=== PATIENT | female | born 1935 | race Caucasian/White ===

== ENCOUNTER 2017-09-18 10:53 | Inpatient (IN) | payer OTHER ==
[~2017-09-18] VITALS: Ht 157.5 cm; Wt 55.7 kg
[~2017-09-18 10:53] MED LIST: ARC5 PO; DTRSR/10 PO; LOSA100T65 PO; LPT40 PO; SENN1TAB65 PO; TMPOPS2510 OPB; TPRSR/25 PO; TYL325X PO
[2017-09-18] MEDS ORDERED: ASPI81TA28 PO (11:44)
[2017-09-18] MEDS ORDERED: CHOL2000 PO (11:44)
[2017-09-18] MEDS ORDERED: LORA-741 PO (11:44)
[2017-09-18] MEDS ORDERED: OMEG10007 PO (11:44)
[2017-09-18] MEDS ORDERED: SODIUM CHLORIDE 0.9% 1000ML 1,000 ML IV STA ×3 (12:05→13:49)
--- NOTE | 2017-09-18 12:26 | DIAGNOSTIC IMAGING REPORT ---
SINGLE VIEW CHEST CLINICAL HISTORY: Generalized weakness. FINDINGS: 2 AP, portable, upright chest radiographs are compared to study dated 11/08/2014. The examination is degraded by portable technique and patient rotation. The cardiomediastinal silhouette is unremarkable. There is atherosclerotic calcification of the thoracic aorta. Airspace opacities are noted at the left lung base. Chronic interstitial thickening is similar to previous. No large pleural effusion or pneumothorax is seen. The skeletal structures are osteopenic. The bony thorax is grossly intact. IMPRESSION: There are airspace opacities at the left lung base. This could represent atelectasis versus pneumonia/aspiration pneumonitis. Clinical correlation will be required. Electronically signed by: Cristian Reyes M.D. 09/18/2017 12:25 PM Dictated Date/Time: 09/18/2017 12:23 PM
[2017-09-18 12:45] LABS: BASO % 0.1 %; BASO ABS # 0.01 K/uL (0-0.2); COMPLETE YES; EOS % 1.5 %; HEMATOCRIT 31.1 % (37-47); IG% 0.4 %; LYMPH % 14.6 %; LYMPH ABS # 1.37 K/uL (1.2-3.4); MEAN CELL VOLUME 97.2 fL (80-100); MEAN CORPUSCULAR HEMOGLOBIN 30.6 pg (25-34); MEAN CORPUSCULAR HGB CONC 31.5 g/dl (32-36); MEAN PLATELET VOLUME 9.5 fL (7.4-10.4); MONO % 7.3 %; NEUT % 76.1 %; PLATELET COUNT 238 K/uL (130-400); WHITE BLOOD COUNT 9.36 K/uL (4.8-10.8)
[2017-09-18 13:04] LABS: PROTHROMBIN TIME (PATIENT) 11.1 SECONDS (9.0-12.0)
[2017-09-18 13:12] LABS: ALT/SGPT 12 U/L (12-78); AST/SGOT 15 U/L (15-37); BLOOD UREA NITROGEN 29 mg/dl (7-18); BUN/CREATININE RATIO 29.5 (10-20); CALCIUM 7.8 mg/dl (8.5-10.1); CARBON DIOXIDE 30 mmol/L (21-32); CHLORIDE 103 mmol/L (98-107); GLUCOSE 110 mg/dl (70-99); POTASSIUM 4.3 mmol/L (3.5-5.1); SODIUM 138 mmol/L (136-145)
[2017-09-18 13:21] LABS: ALKALINE PHOSPHATASE 72 U/L (45-117); CKMB/CK RATIO 2.4 (0-3.0)
[2017-09-18 13:28] LABS: URINE APPEARANCE CLOUDY (CLEAR); URINE COLOR DK YELLOW; URINE EPITHELIAL CELL AUTO >30 /lpf (0-5); URINE NITRITE NEG (NEG); URINE SPECIFIC GRAVITY 1.023 (1.000-1.030); UROBILINOGEN NEG (NEG)
[2017-09-18 13:30] LABS: MANUAL MICROSCOPIC REQUIRED? NO; REVIEW REQ? YES; URINE BILIRUBIN NEG (NEG)
[2017-09-18] MEDS ORDERED: CEFTRIAXONE SOD INJ 1 GM ADDVIAL IV STA (14:09)
[2017-09-18] MEDS ORDERED: DAPTOmycin IV 0 MG in SODIUM CHLORIDE 0.9% 50ML 50 ML IV SCH (15:30)
[2017-09-18] MEDS ORDERED: CEFEPIME IV SCH (15:30)
[2017-09-18] MEDS ORDERED: DEXTROSE 5% IV SCH (15:30)
[2017-09-18] MEDS ORDERED: ONDANSETRON INJ 2 MG/ML 2 ML VIAL IV PRN (15:45)
[2017-09-18] MEDS ORDERED: ACETAMINOPHEN 325 MG TAB PO PRN (15:45)
[2017-09-18 16:53] VITALS: BP 95/89; PULSE 76; TEMP 36.7; O2SAT 100
[2017-09-18] MEDS ORDERED: CEFEPIME CONSULT ACTIVE PRN ×2 (17:00)
[2017-09-18 17:04] VITALS: Ht 157.5 cm; Wt 55.7 kg
[2017-09-18] MEDS: CEFEPIME IV 2,000 MG in SYRINGE 7.5 ML IV SCH (17:05)
[2017-09-18] MEDS ORDERED: TIMO0.05 OPB (17:36)
[2017-09-18] MEDS ORDERED: CHOL400T PO (17:36)
[2017-09-18] MEDS ORDERED: BISA-16 PO (17:36)
[2017-09-18] MEDS ORDERED: POLYETHYLENE (MIRALAX) 17 GM PACK PO PRN (17:45)
--- NOTE | 2017-09-18 18:15 | History and Physical ---
History & Physical Date & Time of Service: Sep 18, 2017 at 17:40 Chief Complaint: Decubitus Ulcer, Ulcer Of Left Heel, Wound Primary Care Physician: Ashlyn Bond D.O. History of Present Illness Source: family Pt is 82 y/o F with hx dementia, HTN, CAD, DM II presented to ER with family with c/o worsening ulcers to sacrum, L heel, L elbow. Pt with hx dementia and history obtained from pt's and son. Reports several weeks ago with R decubitus ulcer and ulcer to L heel, Left elbow and was seen at PCP's office and chose to try to self treat at home without wound evaluation/ treatment. Reports left elbow ulceration seemed to be healing. States noticing worsening R decubitus ulcerations and L heel with large blister and few days ago ruptured with transfer of pt with bloody clear drainage. Noticed some surrounding erythema to L heel wound and noticed edema to L LE. Reports pt with slow decline over past several years and over past 6 months has not been ambulatory. Family reports pt does not follow commands at baseline, talks/ mumbles randomly to self but does not communicate otherwise and does not seem to respond to painful stimuli. Previously was able to stand to help transfer from bed to chair or wheelchair but over past 6 months has not been able to do so. Family reports repositions her throughout the day and pt in recliner or wheelchair. States able to get pt up every 4 hrs during day to bedside commode. Recently have been having aids come to house. and son do not report any noticed choking on foods/liquids/pills. Reports often spits pills out. Past week noticed slight intermittent dry cough. Pt with hx chronic intermittent clear rhinorrhea and have not noticed any worsening. States pt's appetite varies , and some days will eat and other days will not. Pt eats soft solid foods and supplements with ensure. Drinks approx 12 ounces water a day and has some juice. Last BM 2-3 days ago. Family hasn't noticed fever, rigors, hematuria, melena, hematochezia, vomiting, diarrhea, noted wheezing or appearance of SOB. reports has been considering placement of pt in nursing facility and does not want in [facility], but has thought about [facility] in [place]. In ER pt's vitals stable. pt given rocephin. Past Medical/Surgical History Medical Problems: (1) Coronary artery disease Status: Chronic (2) Dementia Status: Chronic (3) Diabetes mellitus, type II Status: Chronic (4) Glaucoma Status: Chronic (5) Hypertension Status: Chronic Surgical Problems: (1) Status post hysterectomy Status: Chronic (2) Status post total knee replacement Status: Chronic Family History FH: cancer FATHER (hx larnyx [place], age 91) MOTHER (hx breast [place], age 81) Social History Smoking Status: Former Smoker Alcohol Use: none Drug Use: none Marital Status: Housing status: lives with significant other Occupational Status: retired Immunizations History of Influenza Vaccine: Yes History of Pneumococcal: Yes Pneumococcal Date: Sep 07, 2008 Allergies Coded Allergies: No Known Allergies (Unverified , 07/29/14) Home Medications Scheduled Aspirin (Aspirin Ec), 81 MG PO DAILY Atorvastatin (Atorvastatin Calcium), 40 MG PO DAILY Bisacodyl (Dulcolax), 1 TAB PO UD Cholecalciferol (Vitamin D), 1 TAB PO DAILY Losartan Potassium (Cozaar), 50 MG PO DAILY Metoprolol Succinate (Metoprolol Succinate ER), 25 MG PO DAILY Sennosides-Docusate Sodium (Senna Plus), 2 TABS PO DAILY Timolol Maleate (Ophth) (Timoptic 0.25% Oph), 1 DROP OPB DAILY Review of Systems unable to obtain further ROS secondary to dementia of pt. Physical Exam Vital Signs Date Time Temp Pulse Resp B/P (MAP) Pulse Ox O2 Delivery O2 Flow Rate FiO2 09/18/17 17:04 Room Air 09/18/17 16:53 36.7 76 18 95/89 (91) 100 Room Air 09/18/17 15:55 70 16 156/83 100 09/18/17 15:26 67 09/18/17 14:23 36.5 70 18 150/101 100 Room Air 09/18/17 13:04 64 18 141/65 100 Room Air 09/18/17 12:07 61 16 124/62 98 Room Air 09/18/17 11:35 100 Room Air 09/18/17 11:14 37.0 66 16 126/57 98 Room Air General Appearance: no apparent distress, + pertinent finding (frail appearing) Head: normocephalic, atraumatic Eyes: normal inspection, PERRL, sclerae normal, + pertinent finding (unable to test EOM's as pt does not follow commands) ENT: pharynx normal, + pertinent finding (mucous membranes moist) Neck: supple, no JVD, trachea midline Respiratory/Chest: lungs clear, normal breath sounds, no respiratory distress, no accessory muscle use, + pertinent finding (do not appreciate any wheezing/ rhonchi/rales however difficult to fully assess as pt does not take deep breaths ) Cardiovascular: regular rate, rhythm, no murmur, + pertinent finding ( peripheral pulses intact) Abdomen/GI: normal bowel sounds, soft, + pertinent finding (no noted wincing or guarding with palpation ) Extremities/Musculoskelatal: normal capillary refill, + pertinent finding (no noted signs of distress with palpation. LLE with edema without erythema. Left medial heel with approx 6cm ulceration with eschar with surrounding erythema, no discharge, no red streaking. Left elbow with approx 3cm ulceration with eschar without significant surrounding erythema. Right sacrum with approx 6cm ulcer with eschar & 7cm ulcer with ecshar and adjoining 3mc ulcer with eschar. Pt holding bilateral arms tightly retracted to body.) Neurologic/Psych: alert, + pertinent finding (demented, pt with intermittent mumbling to self, does not respond or follow commands) Skin: + pertinent finding (abrasions noted to back, several ecchymosis to bilateral forearms. see extremities) Diagnostics Laboratory Results Results Past 24 Hours Test 09/18/17 12:34 09/18/17 12:41 09/18/17 12:55 Range/Units White Blood Count 9.36 4.8-10.8 K/uL Red Blood Count 3.20 4.2-5.4 M/uL Hemoglobin 9.8 12.0-16.0 g/dL Hematocrit 31.1 37-47 % Mean Corpuscular Volume 97.2 80-100 fL Mean Corpuscular Hemoglobin 30.6 25-34 pg Mean Corpuscular Hemoglobin Concent 31.5 32-36 g/dl Platelet Count 238 130-400 K/uL Mean Platelet Volume 9.5 7.4-10.4 fL Neutrophils (%) (Auto) 76.1 % Lymphocytes (%) (Auto) 14.6 % Monocytes (%) (Auto) 7.3 % Eosinophils (%) (Auto) 1.5 % Basophils (%) (Auto) 0.1 % Neutrophils # (Auto) 7.12 1.4-6.5 K/uL Lymphocytes # (Auto) 1.37 1.2-3.4 K/uL Monocytes # (Auto) 0.68 0.11-0.59 K/uL Eosinophils # (Auto) 0.14 0-0.5 K/uL Basophils # (Auto) 0.01 0-0.2 K/uL RDW Standard Deviation 45.9 36.4-46.3 fL RDW Coefficient of Variation 12.9 11.5-14.5 % Immature Granulocyte % (Auto) 0.4 % Immature Granulocyte # (Auto) 0.04 0.00-0.02 K/uL Prothrombin Time 11.1 9.0-12.0 SECONDS Prothromb Time International Ratio 1.0 0.9-1.1 Activated Partial Thromboplast Time 26.2 21.0-31.0 SECONDS Partial Thromboplastin Ratio 1.0 Sodium Level 138 136-145 mmol/L Potassium Level 4.3 3.5-5.1 mmol/L Chloride Level 103 98-107 mmol/L Carbon Dioxide Level 30 21-32 mmol/L Anion Gap 5.0 3-11 mmol/L Blood Urea Nitrogen 29 7-18 mg/dl Creatinine 1.00 0.60-1.20 mg/dl Est Creatinine Clear Calc Drug Dose 34.9 ml/min Estimated GFR () 61.2 Estimated GFR (Non- 52.8 BUN/Creatinine Ratio 29.5 10-20 Random Glucose 110 70-99 mg/dl Calcium Level 7.8 8.5-10.1 mg/dl Magnesium Level 2.0 1.8-2.4 mg/dl Total Bilirubin 0.5 0.2-1 mg/dl Direct Bilirubin 0.1 0-0.2 mg/dl Aspartate Amino Transf (AST/SGOT) 15 15-37 U/L Alanine Aminotransferase (ALT/SGPT) 12 12-78 U/L Alkaline Phosphatase 72 45-117 U/L Total Creatine Kinase 94 26-192 U/L Creatine Kinase MB 2.3 0.5-3.6 ng/ml Creatine Kinase MB Ratio 2.4 0-3.0 Troponin I < 0.015 0-0.045 ng/ml Total Protein 6.4 6.4-8.2 gm/dl Albumin 1.9 3.4-5.0 gm/dl Lipase 72 73-393 U/L Thyroid Stimulating Hormone (TSH) 1.510 0.300-4.500 uIu/ml Bedside Lactic Acid Venous 2.16 0.90-1.70 mmol/L Urine Color DK YELLOW Urine Appearance CLOUDY CLEAR Urine pH 5.0 4.5-7.5 Urine Specific [place] 1.023 1.000-1.030 Urine Protein 1+ NEG Urine Glucose (UA) NEG NEG Urine Ketones TRACE NEG Urine Occult Blood 3+ NEG Urine Nitrite NEG NEG Urine Bilirubin NEG NEG Urine Urobilinogen NEG NEG Urine Leukocyte Esterase SMALL NEG Urine WBC (Auto) 1-5 0-5 /hpf Urine RBC (Auto) 10-30 0-4 /hpf Urine Hyaline Casts (Auto) 1-5 0-5 /lpf Urine Epithelial Cells (Auto) >30 0-5 /lpf Urine Bacteria (Auto) NEG NEG Urine Crystals CALCIUM OXALATE NONE PRSENT Urine Pathogenic Casts 0 /lpf Microbiology Results 09/18/17 Blood Culture, Received Pending 09/18/17 Blood Culture, Received Pending 09/18/17 MRSA DNA Surveillance Screen, Received Pending 09/18/17 Urine Culture, Received Pending 09/18/17 Gram Stain, Received Pending 09/18/17 Wound Culture, Received Pending Diagnostic Radiology CXR: IMPRESSION: There are airspace opacities at the left lung base. This could represent atelectasis versus pneumonia/aspiration pneumonitis. Clinical correlation will be required. EKG EKG: artifact noted, NSR, rate 68, no ST elevations noted Impression Assessment and Plan INFECTED ULCER L heel ulcer appears infected at this time. No leukocytosis, afebrile, no tachycardia or tachypnea. POC lactic acid: 2.1. Pt does not meet sepsis criteria at this time. Will continue to monitor. Pt also with ulcers to L elbow and R sacrum. -U/S bilateral LE to r/o DVT -obtain wound cultures from all ulceration sites -daptomycin and zosyn to cover possible MRSA and pseudomonas -ID consult -wound consult - appreciate wound nurse recommendations for wound care and type of mattress -frequent repositioning of pt -repeat cbc, prp in am DEMENTIA Pt reported to be at baseline per family -speech eval for swallowing. will hold on diet at this time until eval ATELECTASIS: CXR: impression: There are airspace opacities at the left lung base. This could represent atelectasis versus pneumonia/aspiration pneumonitis. At this time do not clinically suspect pneumonia and suspect atelectasis. Will continue to monitor. Do not suspect pt would be able to do incentive spirometry with her dementia HYPERLIPIDEMIA -add fasting lipids for am -hold lipitor at this time with pt being on daptomycin per pharmacist recommendations HX DM II Diet controlled at this time. glucose was 110 in ER. Hx A1c in 2016 was 6.1 -add A1c -continue to monitor DVT PROPHYLAXIS -heparin SQ Q12 hrs DISPOSITION -admit med/surg -DNR as per discussion with family -Follows with Dr Bond for routine care Pt was seen with Dr Tom. See addendum Level of Care Med/Surg Advanced Directives Existing Living Will: No Existing Power of Inspector [employer]: Yes Resuscitation Status DO NOT RESUSCITATE VTE Prophylaxis VTE Risk Assessment Done? Y/N: Yes Risk Level: High Given or contraindicated: Unfractionated heparin SQ Note ATTENDING ADDENDUM Record reviewed. Patient interviewed and examined. Care coordinated with Debora Urena PA-C. Please refer to her documentation for patient's history. Briefly, 82 YO female with history of ischemic heart disease, DM type 2, dementia. Brought to ED because of multiple decubitus ulcers not improving with home care. Patient is bedridden. EXAM: General- no acute distress VS- as noted Lungs- clear Heart- RRR, no gallop appreciated; pedal pulses 1/2 Abdomen- soft, nontender Extremities- swelling LLE; contractures upper and lower extremities Neuro- awake, confused Skin- multiple decubitus ulcers (left medial ankle 5 cm stage III; right greater trochanter 6 cm, unstagable; right sacral 3 cm, stage III; left sacral 6 cm, stage III; left elbow, stage III DATA: Lab studies as noted. ASSESSMENT AND PLAN: Multiple infected decubitus ulcers. Does not meet criteria for sepsis. Need to cover gram positive organisms including MRSA as well as gram negative organisms including Pseudomonas. IV antibiotic coverage with daptomycin and cefepime. Consult ID. Consult Wound Care. Avoid pressure / reposition. Please refer to ANABEL Dean's documentation for discussion of other issues. Serge Tom MD . Additional Copies To Ashlyn Bond D.O.
[2017-09-18] MEDS: DAPTOmycin IV 225 MG in SYRINGE 0 ML IV SCH (19:14)
--- NOTE | 2017-09-18 19:45 | EMERGENCY ROOM VISIT NOTE ---
History Report prepared by Donnie[place]conchis: Vikki Hay Under the Supervision of: Dr. Serge Miller M.D. First contact with patient: 12:04 Chief Complaint: WOUND INFECTION Stated Complaint: ILLNESS/SEPSIS Nursing Triage Summary: pt comes via EMS for wound concerns per . pt disoriented and mumbling. Expresive aphasia and non verbal. Contracted upper limbs. AMS and lethargic baseline per . pt seen in [facility] 1 month ago for pressure ulcers. Placed on ABX. pt skin dry, flaky, and fragile. 5 pressure ulcers noted on assessment. black and necrotic w/ purulent foul smelling drainage. History of Present Illness The patient is a 82 year old female who presents to the Emergency Room with complaints of worsening wound sites with possible wound infections. The patient comes via EMS. Per , the patient has expressive aphasia, is confused and is non verbal which is baseline for her. The patient was seen in [place] a month ago for pressure ulcers and was placed on antibiotics. Per nursing, the patient came to the ED because her wounds are not improving. Per nursing, the patient lives at home and has in home care nursing come in to check on her. Per son, the patient is mostly bedridden and has had no recent falls or trauma. History limited secondary to patient's mental status. Source of History: patient History Limited By: aphasia Onset: one month ago Review of Systems ROS limited secondary to patient's mental status. Past Medical & Surgical Medical Problems: (1) Coronary artery disease (2) Decubitus ulcer (3) Dementia (4) Diabetes mellitus, type II (5) Glaucoma (6) Hypertension (7) Ulcer of left heel (8) Wound infection Surgical Problems: (1) Status post hysterectomy (2) Status post total knee replacement Family History No pertinent family history Social History Smoking Status: Never Smoker Marital Status: Housing Status: lives with significant other Occupation Status: retired Current/Historical Medications Scheduled Aspirin (Aspirin Ec), 81 MG PO DAILY Atorvastatin (Atorvastatin Calcium), 40 MG PO DAILY Bisacodyl (Dulcolax), 1 TAB PO UD Cholecalciferol (Vitamin D), 1 TAB PO DAILY Losartan Potassium (Cozaar), 50 MG PO DAILY Metoprolol Succinate (Metoprolol Succinate ER), 25 MG PO DAILY Sennosides-Docusate Sodium (Senna Plus), 2 TABS PO DAILY Timolol Maleate (Ophth) (Timoptic 0.25% Oph), 1 DROP OPB DAILY Allergies Coded Allergies: No Known Allergies (Unverified , 07/29/14) Physical Exam Vital Signs Date Time Temp Pulse Resp B/P (MAP) Pulse Ox O2 Delivery O2 Flow Rate FiO2 09/18/17 15:26 67 09/18/17 14:23 36.5 70 18 150/101 100 Room Air 09/18/17 13:04 64 18 141/65 100 Room Air 09/18/17 12:07 61 16 124/62 98 Room Air 09/18/17 11:35 100 Room Air 09/18/17 11:14 37.0 66 16 126/57 98 Room Air Physical Exam GENERAL: Awake, in no distress HENT: Normocephalic, atraumatic. Oropharynx unremarkable. EYES: Disconjugate gaze, pupils round and reactive. Left eye glazed over which is baseline per son. NECK: Supple. No nuchal rigidity. FROM. No JVD. RESPIRATORY: Clear to auscultation. CARDIAC: Regular rate, normal rhythm. Extremities warm and well perfused. Pulses equal. ABDOMEN: Soft, non-distended. No tenderness to palpation. No rebound or guarding. No masses. RECTAL: Deferred. MUSCULOSKELETAL: Chest examination reveals no tenderness. The back is symmetrical on inspection without obvious abnormality. There is no CVA tenderness to palpation. No joint edema. LOWER EXTREMITIES: Calves are equal size bilaterally and non-tender. No edema. No discoloration. NEURO: Normal sensorium. No sensory or motor deficits noted. SKIN: Grade 3 decubitus to left heel, grade 3 decubitus left elbow, grade 3 decubitus right hip. Medical Decision & Procedures ER Provider Diagnostic Interpretation: Radiology results as stated below per my review and radiologist interpretation: SINGLE VIEW CHEST FINDINGS: 2 AP, portable, upright chest radiographs are compared to study dated 11/08/2014. The examination is degraded by portable technique and patient rotation. The cardiomediastinal silhouette is unremarkable. There is atherosclerotic calcification of the thoracic aorta. Airspace opacities are noted at the left lung base. Chronic interstitial thickening is similar to previous. No large pleural effusion or pneumothorax is seen. The skeletal structures are osteopenic. The bony thorax is grossly intact. IMPRESSION: There are airspace opacities at the left lung base. This could represent atelectasis versus pneumonia/aspiration pneumonitis. Clinical correlation will be required. Electronically signed by: Cristian Reyes M.D. Laboratory Results 09/18/17 12:34 Red Blood Count 3.20, Mean Corpuscular Volume 97.2, Mean Corpuscular Hemoglobin 30.6, Mean Corpuscular Hemoglobin Concent 31.5, Mean Platelet Volume 9.5, Neutrophils (%) (Auto) 76.1, Lymphocytes (%) (Auto) 14.6, Monocytes (%) (Auto) 7.3, Eosinophils (%) (Auto) 1.5, Basophils (%) (Auto) 0.1, Neutrophils # (Auto) 7.12, Lymphocytes # (Auto) 1.37, Monocytes # (Auto) 0.68, Eosinophils # (Auto) 0.14, Basophils # (Auto) 0.01 09/18/17 12:34 Test 09/18/17 12:34 09/18/17 12:41 09/18/17 12:55 White Blood Count 9.36 K/uL (4.8-10.8) Red Blood Count 3.20 M/uL (4.2-5.4) Hemoglobin 9.8 g/dL (12.0-16.0) Hematocrit 31.1 % (37-47) Mean Corpuscular Volume 97.2 fL (80-100) Mean Corpuscular Hemoglobin 30.6 pg (25-34) Mean Corpuscular Hemoglobin Concent 31.5 g/dl (32-36) Platelet Count 238 K/uL (130-400) Mean Platelet Volume 9.5 fL (7.4-10.4) Neutrophils (%) (Auto) 76.1 % Lymphocytes (%) (Auto) 14.6 % Monocytes (%) (Auto) 7.3 % Eosinophils (%) (Auto) 1.5 % Basophils (%) (Auto) 0.1 % Neutrophils # (Auto) 7.12 K/uL (1.4-6.5) Lymphocytes # (Auto) 1.37 K/uL (1.2-3.4) Monocytes # (Auto) 0.68 K/uL (0.11-0.59) Eosinophils # (Auto) 0.14 K/uL (0-0.5) Basophils # (Auto) 0.01 K/uL (0-0.2) RDW Standard Deviation 45.9 fL (36.4-46.3) RDW Coefficient of Variation 12.9 % (11.5-14.5) Immature Granulocyte % (Auto) 0.4 % Immature Granulocyte # (Auto) 0.04 K/uL (0.00-0.02) Prothrombin Time 11.1 SECONDS (9.0-12.0) Prothromb Time International Ratio 1.0 (0.9-1.1) Activated Partial Thromboplast Time 26.2 SECONDS (21.0-31.0) Partial Thromboplastin Ratio 1.0 Anion Gap 5.0 mmol/L (3-11) Est Creatinine Clear Calc Drug Dose 34.9 ml/min Estimated GFR () 61.2 Estimated GFR (Non- 52.8 BUN/Creatinine Ratio 29.5 (10-20) Calcium Level 7.8 mg/dl (8.5-10.1) Magnesium Level 2.0 mg/dl (1.8-2.4) Total Bilirubin 0.5 mg/dl (0.2-1) Direct Bilirubin 0.1 mg/dl (0-0.2) Aspartate Amino Transf (AST/SGOT) 15 U/L (15-37) Alanine Aminotransferase (ALT/SGPT) 12 U/L (12-78) Alkaline Phosphatase 72 U/L (45-117) Total Creatine Kinase 94 U/L (26-192) Creatine Kinase MB 2.3 ng/ml (0.5-3.6) Creatine Kinase MB Ratio 2.4 (0-3.0) Troponin I < 0.015 ng/ml (0-0.045) Total Protein 6.4 gm/dl (6.4-8.2) Albumin 1.9 gm/dl (3.4-5.0) Lipase 72 U/L (73-393) Thyroid Stimulating Hormone (TSH) 1.510 uIu/ml (0.300-4.500) Bedside Lactic Acid Venous 2.16 mmol/L (0.90-1.70) Urine Color DK YELLOW Urine Appearance CLOUDY (CLEAR) Urine pH 5.0 (4.5-7.5) Urine Specific [place] 1.023 (1.000-1.030) Urine Protein 1+ (NEG) Urine Glucose (UA) NEG (NEG) Urine Ketones TRACE (NEG) Urine Occult Blood 3+ (NEG) Urine Nitrite NEG (NEG) Urine Bilirubin NEG (NEG) Urine Urobilinogen NEG (NEG) Urine Leukocyte Esterase SMALL (NEG) Urine WBC (Auto) 1-5 /hpf (0-5) Urine RBC (Auto) 10-30 /hpf (0-4) Urine Hyaline Casts (Auto) 1-5 /lpf (0-5) Urine Epithelial Cells (Auto) >30 /lpf (0-5) Urine Bacteria (Auto) NEG (NEG) Urine Crystals CALCIUM OXALATE (NONE Urine Pathogenic Casts /lpf (0) Date/Time Source Procedure Growth Status 09/18/17 00:00 Nasal MRSA DNA Surveillance Screen - Final Specimen Positive for MRSA by DNA Probe Complete Laboratory results reviewed by me Medications Administered Medications (Trade) Dose Ordered Sig/Matthew Route Start Time Stop Time Status Last Admin Dose Admin Sodium Chloride 1,000 ml @ 125 mls/hr Q8H STAT IV 09/18/17 12:05 09/18/17 16:42 DC 09/18/17 13:11 125 MLS/HR Sodium Chloride 1,000 ml @ 999 mls/hr Q1H1M STAT IV 09/18/17 13:49 09/18/17 14:49 DC 09/18/17 14:20 999 MLS/HR Ceftriaxone Sodium (Rocephin Inj) 1 gm NOW STAT IV 09/18/17 14:09 09/18/17 14:11 DC 09/18/17 14:20 1 GM ECG Indication: other (wound infection) Rate (beats per minute): 68 Rhythm: normal sinus Findings: no acute ischemic change, no ectopy ED Course 1205: Ordered Sodium Chloride 1000 ml @ 125 mls/hr IV. 1224: The patient was evaluated in room A3. A complete history and physical exam was performed. 1349: Ordered Sodium Chloride 1000 ml @ 999 mls/hr IV, Sodium Chloride 1000 ml @ 125 mls/hr IV. 1408: I updated the family on the patient's test results. 1409: Ordered Rocephin Inj 1 gm IV. 1423: Discussed the patient's case with Debora Landa . The patient will be evaluated for further treatment and disposition. Medical Decision Triage Nursing notes reviewed. The patient's presentation and history were concerning for worsening ulcers and inability to care for her as an outpatient. Etiologies such as dehydration, metabolic abnormality, cellulitis, abscess, MRSA infection, necrotizing fasciitis, as well as others were entertained. Patient was evaluated. Cultures were obtained. Urinalysis obtained. She had the right hip decubiti cultured as well. She was hydrated. Urinalysis was somewhat concerning for infection as well as the right hip decubiti. She was given a dose of IV Rocephin. CBC showed a mild anemia. Chemistry panel is concerning for dehydration. I discussed the case with the patient's family. Given the situation further management in the hospital is appropriate. Consultation was made with internal medicine. The patient was evaluated in the Emergency Room for further management. Blood Pressure Screening Patient's blood pressure: Elevated blood pressure Blood pressure disposition: Referred to PCP (to be evaluated by hospitalist) Consults Time Called: 1420 Consulting Physician: Debora Landa Returned Call: [phone] Discussed the patient's case. The patient will be evaluated for further treatment and disposition. Impression Primary Impression: Dehydration Additional Impressions: UTI (urinary tract infection) Decubitus ulcers Scribe Attestation The scribe's documentation has been prepared under my direction and personally reviewed by me in its entirety. I confirm that the note above accurately reflects all work, treatment, procedures, and medical decision making performed by me. Departure Information Dispostion Being Evaluated By Hospitalist Referrals Elizabeth Jackman M.D. (PCP) Patient Instructions My [facility] Problem Qualifiers
[2017-09-18] MEDS ORDERED: HEPARIN SOD 5000 UNIT/0.5 ML CARP SQ SCH (21:00)
--- NOTE | 2017-09-18 22:48 | DIAGNOSTIC IMAGING REPORT ---
BILATERAL LOWER EXTREMITY VENOUS DOPPLER HISTORY: Bilateral lower extremity venous. COMPARISON STUDY: None. FINDINGS: Thrombus identified within the right common femoral vein and right superficial femoral vein. This is near occlusive thrombus. The right popliteal vein and right calf vessels are patent. The left common femoral vein and left superficial vein are patent. There is near occlusive thrombus within the left popliteal vein. The calf vessels are likely patent. IMPRESSION: Bilateral lower extremity DVT as described above. Electronically signed by: Homero Diaz M.D. 09/18/2017 10:46 PM Dictated Date/Time: 09/18/2017 10:45 PM
[2017-09-18 23:27] VITALS: BP 110/57; PULSE 75; TEMP 36.4; O2SAT 100
[2017-09-19] MEDS: HEPARIN 25,000 UNIT/500ML D5W 500 ML IV PRN (00:59)
[2017-09-19 07:23] VITALS: BP 103/56; PULSE 66; TEMP 37.1; O2SAT 100
[2017-09-19 07:26] LABS: BASO % 0.1 %; BASO ABS # 0.01 K/uL (0-0.2); EOS % 1.2 %; HEMATOCRIT 27.2 % (37-47); IG% 0.5 %; LYMPH % 19.4 %; LYMPH ABS # 1.61 K/uL (1.2-3.4); MEAN CELL VOLUME 96.1 fL (80-100); MEAN CORPUSCULAR HEMOGLOBIN 29.7 pg (25-34); MEAN CORPUSCULAR HGB CONC 30.9 g/dl (32-36); MONO % 7.1 %; NEUT % 71.7 %; PLATELET COUNT 231 K/uL (130-400); RED BLOOD COUNT 2.83 M/uL (4.2-5.4); WHITE BLOOD COUNT 8.31 K/uL (4.8-10.8)
[2017-09-19 07:32] LABS: ESTIMATED AVERAGE GLUCOSE 134 mg/dl; HA1C FLAG Normal (Normal)
[2017-09-19 07:45] LABS: PARTIAL THROMBOPLASTIN RATIO 4.1
[2017-09-19 07:53] LABS: ACANTHOCYTES 1+; COMPLETE YES; ECHINOCYTES 2+
[2017-09-19 07:58] LABS: BUN/CREATININE RATIO 28.1 (10-20); CREATININE 0.88 mg/dl (0.60-1.20); POTASSIUM 4.6 mmol/L (3.5-5.1)
[2017-09-19] MEDS ORDERED: LOSARTAN POTASSIUM 50 MG TAB PO SCH (08:00)
[2017-09-19] MEDS: METOPROLOL SUCC 25MG EXT REL TAB PO SCH (08:00)
[2017-09-19] MEDS: ASPIRIN 81 MG ECTAB PO SCH (08:00)
[2017-09-19] MEDS ORDERED: ATORVASTATIN 40 MG TAB PO SCH (08:00)
[2017-09-19 08:01] LABS: CHOLESTEROL/HDL RATIO 3.9
[2017-09-19] MEDS: TIMOLOL MALEATE 0.25% OP SOLN 5 ML BTL OPB SCH (08:41)
[2017-09-19 16:07] VITALS: BP 113/58; PULSE 71; TEMP 37.4; O2SAT 100
[2017-09-19 16:33] LABS: PARTIAL THROMBOPLASTIN RATIO 3.4
[2017-09-19] MEDS: CEFEPIME IV 2,000 MG in SYRINGE 7.5 ML IV SCH (17:52)
[2017-09-19] MEDS: DAPTOmycin IV 225 MG in SYRINGE 0 ML IV SCH (17:52)
--- NOTE | 2017-09-19 20:12 | Progress Note ---
Medicine Progress Note Date & Time of Visit: Sep 19, 2017 at 09:00 . Subjective Somnolent. Appears to be comfortable. Unable to respond to questions. . Objective Last 8 Hrs Date Time Temp Pulse Resp B/P (MAP) Pulse Ox O2 Delivery O2 Flow Rate FiO2 09/19/17 16:07 37.4 71 18 113/58 (76) 100 Room Air 09/19/17 16:05 Room Air Physical Exam: General- no apparent distress Neck- no JVD Lungs- clear to auscultation Heart- regular, no murmur or gallop appreciated Abdomen- soft, nontender Extremities- contractures of all extremities; 1+ edema left lower extremity Neuro- somnolent Skin- multiple ulcers bandaged . Laboratory Results: Last 24 Hours Test 09/19/17 07:11 09/19/17 15:46 White Blood Count 8.31 K/uL Red Blood Count 2.83 M/uL Hemoglobin 8.4 g/dL Hematocrit 27.2 % Mean Corpuscular Volume 96.1 fL Mean Corpuscular Hemoglobin 29.7 pg Mean Corpuscular Hemoglobin Concent 30.9 g/dl Platelet Count 231 K/uL Mean Platelet Volume 9.0 fL Neutrophils (%) (Auto) 71.7 % Lymphocytes (%) (Auto) 19.4 % Monocytes (%) (Auto) 7.1 % Eosinophils (%) (Auto) 1.2 % Basophils (%) (Auto) 0.1 % Neutrophils # (Auto) 5.96 K/uL Lymphocytes # (Auto) 1.61 K/uL Monocytes # (Auto) 0.59 K/uL Eosinophils # (Auto) 0.10 K/uL Basophils # (Auto) 0.01 K/uL RDW Standard Deviation 45.5 fL RDW Coefficient of Variation 12.8 % Immature Granulocyte % (Auto) 0.5 % Immature Granulocyte # (Auto) 0.04 K/uL Echinocytes 2+ Acanthocytes 1+ Activated Partial Thromboplast Time 107.6 SECONDS 89.2 SECONDS Partial Thromboplastin Ratio 4.1 3.4 Sodium Level 143 mmol/L Potassium Level 4.6 mmol/L Chloride Level 111 mmol/L Carbon Dioxide Level 27 mmol/L Anion Gap 5.0 mmol/L Blood Urea Nitrogen 25 mg/dl Creatinine 0.88 mg/dl Est Creatinine Clear Calc Drug Dose 39.7 ml/min Estimated GFR () 71.4 Estimated GFR (Non- 61.6 BUN/Creatinine Ratio 28.1 Random Glucose 96 mg/dl Estimated Average Glucose 134 mg/dl Hemoglobin A1c 6.3 % Calcium Level 8.0 mg/dl Triglycerides Level 74 mg/dl Cholesterol Level 114 mg/dl HDL Cholesterol 29 mg/dl LDL Cholesterol, Calculated 70 mg/dl VLDL Cholesterol, Calculated 15 mg/dl Cholesterol/HDL Ratio 3.9 Date/Time Source Procedure Growth Status 09/19/17 12:45 Ulcer Hip , Right Gram Stain - Final Resulted 09/19/17 12:45 Ulcer Hip , Right Wound Culture Pending Resulted 09/19/17 12:45 Ulcer Foot Left Gram Stain - Final Resulted 09/19/17 12:45 Ulcer Foot Left Wound Culture Pending Resulted 09/19/17 12:45 Ulcer Elbow Left Gram Stain - Final Resulted 09/19/17 12:45 Ulcer Elbow Left Wound Culture Pending Resulted Assessment & Plan MULTIPLE SKIN ULCERS (present on admission) Wound Care Nursing consulted. Cultures pending. Continue daptomycin and cefepime. DVT'S BILAT LOWER EXTREMITIES (present on admission) Venous duplex demonstrated extensive DVTs both lower extremities. Started on IV heparin. Continue IV heparin pending long-term plans. CORONARY ARTERY DISEASE Continue aspirin and metoprolol. HYPERTENSION Continue metoprolol. DM TYPE 2 Well-controlled on dietary management. Tight control not indicated given patient's advanced age and comorbidities. Hemoglobin A1c 6.3. Fasting blood sugar this morning = 96. Start insulin per protocol if blood sugars rise significantly. ANEMIA Hgb 9.8 --> 8.4. Suspect that anemia is chronic/multifactorial with falling H/H due to hemodilution. Check Hemoccult. Check iron, B12, folate. Follow. VTE PROPHYLAXIS Receiving IV heparin for acute bilateral DVT's present on admission. DISPOSITION To be determined. Internal Medicine follow-up with Dr. Bond. given update by phone this evening. . Current Inpatient Medications: Current Inpatient Medications Medications (Trade) Dose Ordered Sig/Matthew Route Start Time Stop Time Status Last Admin Dose Admin Acetaminophen (Tylenol Tab) 650 mg Q4H PRN PO 09/18/17 15:45 10/18/17 15:44 Ondansetron HCl (Zofran Inj) 4 mg Q6H PRN IV 09/18/17 15:45 12/24/17 15:44 Cefepime HCl 2000 mg/Syringe 20 ml @ 5 mls/min DAILY@1700 IV 09/18/17 17:00 09/28/17 16:59 09/19/17 17:52 5 MLS/MIN Daptomycin 225 mg/ Syringe 4.5 ml @ 5 mls/min DAILY@1800 IV 09/18/17 18:00 09/28/17 17:59 09/19/17 17:52 5 MLS/MIN Cefepime HCl (Consult) 1 ea UD PRN N/A 09/18/17 17:00 10/18/17 16:59 Polyethylene (Miralax Powder Packet) 17 gm DAILY PRN PO 09/18/17 17:45 10/18/17 17:44 Aspirin (Ecotrin Tab) 81 mg DAILY PO 09/19/17 08:00 10/19/17 07:59 Metoprolol Succinate (Toprol Xl Tab) 25 mg DAILY PO 09/19/17 08:00 10/19/17 07:59 Timolol Maleate (Timoptic 0.25% Oph Soln) 1 drops DAILY OPB 09/19/17 08:00 10/19/17 07:59 09/19/17 08:41 1 DROPS Heparin Sodium/ Dextrose 500 ml @ 15 mls/hr Q24H PRN IV 09/19/17 00:15 10/19/17 00:14 Future hold 09/19/17 00:59 19 MLS/HR
--- NOTE | 2017-09-19 20:16 | Medical Consult ---
Consultation Date of Consultation: Sep 19, 2017. Attending Physician: Serge Tom M.D. Reason for Consultation: Infected ulcer`` History of Present Illness 82-year-old female with baseline dementia, diabetes mellitus, hypertension, and coronary artery disease, who apparently is been suffering from pressure ulcerations involving her hip, sacrum, left elbow, and left heel. She apparently was seen approximately 1 month ago and treated with wound care and antibiotics, but over the last week family has noted progressively worsening ulcerations with foul-smelling drainage and some worsening erythema. Eventually brought to the emergency room yesterday and admitted for further management. Started empirically on IV vancomycin in cefepime, cultures now growing Staph aureus, sensitivities are pending. No report of significant fevers. Patient not able to provide any other additional history. Past Medical/Surgical History Medical Problems: (1) Decubitus ulcers Status: Acute (2) Dehydration Status: Acute (3) UTI (urinary tract infection) Status: Acute Medical Problems: (1) Coronary artery disease (2) Decubitus ulcer (3) Dementia (4) Diabetes mellitus, type II (5) Glaucoma (6) Hypertension (7) Ulcer of left heel (8) Wound infection Surgical Problems: (1) Status post hysterectomy (2) Status post total knee replacement Family History FH: cancer FATHER (hx larnyx CA, age 91) MOTHER (hx breast CA, age 81) Social History Smoking Status: Never Smoker Alcohol Use: none Drug Use: none Marital Status: Housing Status: lives with significant other Occupation Status: retired Allergies Coded Allergies: No Known Allergies (Unverified , 07/29/14) Current Inpatient Medications Current Inpatient Medications Medications (Trade) Dose Ordered Sig/Matthew Route Start Time Stop Time Status Last Admin Dose Admin Acetaminophen (Tylenol Tab) 650 mg Q4H PRN PO 09/18/17 15:45 10/18/17 15:44 Ondansetron HCl (Zofran Inj) 4 mg Q6H PRN IV 09/18/17 15:45 10/18/17 15:44 Cefepime HCl 2000 mg/Syringe 20 ml @ 5 mls/min DAILY@1700 IV 09/18/17 17:00 09/28/17 16:59 09/19/17 17:52 5 MLS/MIN Daptomycin 225 mg/ Syringe 4.5 ml @ 5 mls/min DAILY@1800 IV 09/18/17 18:00 09/28/17 17:59 09/19/17 17:52 5 MLS/MIN Cefepime HCl (Consult) 1 ea UD PRN N/A 09/18/17 17:00 10/18/17 16:59 Polyethylene (Miralax Powder Packet) 17 gm DAILY PRN PO 09/18/17 17:45 10/18/17 17:44 Aspirin (Ecotrin Tab) 81 mg DAILY PO 09/19/17 08:00 10/19/17 07:59 Metoprolol Succinate (Toprol Xl Tab) 25 mg DAILY PO 09/19/17 08:00 10/19/17 07:59 Timolol Maleate (Timoptic 0.25% Oph Soln) 1 drops DAILY OPB 09/19/17 08:00 10/19/17 07:59 09/19/17 08:41 1 DROPS Heparin Sodium/ Dextrose 500 ml @ 15 mls/hr Q24H PRN IV 09/19/17 00:15 10/19/17 00:14 Future hold 09/19/17 00:59 19 MLS/HR Potassium Chloride/Dextrose/ Sod Cl 1,000 ml @ 80 mls/hr [id number] IV 09/19/17 20:15 10/19/17 20:14 UNV Review of Systems unable to obtain review of systems because of patient's dementia. Physical Exam Date Time Temp Pulse Resp B/P (MAP) Pulse Ox O2 Delivery O2 Flow Rate FiO2 09/19/17 16:07 37.4 71 18 113/58 (76) 100 Room Air 09/19/17 16:05 Room Air 09/19/17 08:00 Room Air 09/19/17 07:23 37.1 66 20 103/56 (72) 100 Room Air 09/19/17 00:00 Room Air 09/18/17 23:27 36.4 75 18 110/57 (74) 100 Room Air General Appearance: WD/WN, no apparent distress Head: normocephalic, atraumatic Eyes: normal inspection, EOMI, sclerae normal ENT: normal ENT inspection, pharynx normal Neck: supple, no adenopathy, thyroid normal, trachea midline Respiratory/Chest: chest non-tender, lungs clear, normal breath sounds, no respiratory distress Cardiovascular: regular rate, rhythm, no gallop, no murmur Abdomen/GI: normal bowel sounds, non tender, soft, no organomegaly Back: normal inspection, no CVA tenderness Extremities/Musculoskelatal: no calf tenderness, normal capillary refill, + pedal edema, + pertinent finding ( Upper extremities contracted) Neurologic/Psych: alert, + disoriented Skin: normal color, no rash, + pertinent finding ( decubitus ulcers involving left heel, left elbow, hip, and right sacral area, with foul odor and some surrounding erythema) Lymphatic: no adenopathy Laboratory Results SINGLE VIEW CHEST CLINICAL HISTORY: Generalized weakness. FINDINGS: 2 AP, portable, upright chest radiographs are compared to study dated 11/08/2014. The examination is degraded by portable technique and patient rotation. The cardiomediastinal silhouette is unremarkable. There is atherosclerotic calcification of the thoracic aorta. Airspace opacities are noted at the left lung base. Chronic interstitial thickening is similar to previous. No large pleural effusion or pneumothorax is seen. The skeletal structures are osteopenic. The bony thorax is grossly intact. IMPRESSION: There are airspace opacities at the left lung base. This could represent atelectasis versus pneumonia/aspiration pneumonitis. Clinical correlation will be required. Electronically signed by: Cristian Reyes M.D. 09/18/2017 12:25 PM Dictated Date/Time: 09/18/2017 12:23 PM The status of this report is Signed. Draft = Not yet reviewed or approved by Radiologist. Signed = Reviewed and approved Date/Time Source Procedure Growth Status 09/19/17 12:45 Ulcer Hip , Right Gram Stain - Final Resulted 09/19/17 12:45 Ulcer Hip , Right Wound Culture Pending Resulted 09/19/17 12:45 Ulcer Foot Left Gram Stain - Final Resulted 09/19/17 12:45 Ulcer Foot Left Wound Culture Pending Resulted 09/19/17 12:45 Ulcer Elbow Left Gram Stain - Final Resulted 09/19/17 12:45 Ulcer Elbow Left Wound Culture Pending Resulted Last 24 Hours Test 09/19/17 07:11 09/19/17 15:46 White Blood Count 8.31 K/uL Red Blood Count 2.83 M/uL Hemoglobin 8.4 g/dL Hematocrit 27.2 % Mean Corpuscular Volume 96.1 fL Mean Corpuscular Hemoglobin 29.7 pg Mean Corpuscular Hemoglobin Concent 30.9 g/dl Platelet Count 231 K/uL Mean Platelet Volume 9.0 fL Neutrophils (%) (Auto) 71.7 % Lymphocytes (%) (Auto) 19.4 % Monocytes (%) (Auto) 7.1 % Eosinophils (%) (Auto) 1.2 % Basophils (%) (Auto) 0.1 % Neutrophils # (Auto) 5.96 K/uL Lymphocytes # (Auto) 1.61 K/uL Monocytes # (Auto) 0.59 K/uL Eosinophils # (Auto) 0.10 K/uL Basophils # (Auto) 0.01 K/uL RDW Standard Deviation 45.5 fL RDW Coefficient of Variation 12.8 % Immature Granulocyte % (Auto) 0.5 % Immature Granulocyte # (Auto) 0.04 K/uL Echinocytes 2+ Acanthocytes 1+ Activated Partial Thromboplast Time 107.6 SECONDS 89.2 SECONDS Partial Thromboplastin Ratio 4.1 3.4 Sodium Level 143 mmol/L Potassium Level 4.6 mmol/L Chloride Level 111 mmol/L Carbon Dioxide Level 27 mmol/L Anion Gap 5.0 mmol/L Blood Urea Nitrogen 25 mg/dl Creatinine 0.88 mg/dl Est Creatinine Clear Calc Drug Dose 39.7 ml/min Estimated GFR () 71.4 Estimated GFR (Non- 61.6 BUN/Creatinine Ratio 28.1 Random Glucose 96 mg/dl Estimated Average Glucose 134 mg/dl Hemoglobin A1c 6.3 % Calcium Level 8.0 mg/dl Triglycerides Level 74 mg/dl Cholesterol Level 114 mg/dl HDL Cholesterol 29 mg/dl LDL Cholesterol, Calculated 70 mg/dl VLDL Cholesterol, Calculated 15 mg/dl Cholesterol/HDL Ratio 3.9 SINGLE VIEW CHEST CLINICAL HISTORY: Generalized weakness. FINDINGS: 2 AP, portable, upright chest radiographs are compared to study dated 11/08/2014. The examination is degraded by portable technique and patient rotation. The cardiomediastinal silhouette is unremarkable. There is atherosclerotic calcification of the thoracic aorta. Airspace opacities are noted at the left lung base. Chronic interstitial thickening is similar to previous. No large pleural effusion or pneumothorax is seen. The skeletal structures are osteopenic. The bony thorax is grossly intact. IMPRESSION: There are airspace opacities at the left lung base. This could represent atelectasis versus pneumonia/aspiration pneumonitis. Clinical correlation will be required. Electronically signed by: Cristian Reyes M.D. 09/18/2017 12:25 PM Dictated Date/Time: 09/18/2017 12:23 PM The status of this report is Signed. Draft = Not yet reviewed or approved by Radiologist. Signed = Reviewed and approved Assessment & Plan infected left heel ulceration in patient with diabetes mellitus, with culture growing Staph aureus, sensitivities pending. Current antibiotic regimen appropriate pending final culture results. Will adjust once these are available. Will follow.
[2017-09-19] MEDS: D5W AND 1/2NSS + 20MEQ KCL 1,000 ML IV SCH (22:15)
[2017-09-19 23:30] VITALS: BP 145/69; PULSE 72; TEMP 36.9; O2SAT 100
[2017-09-20] LABS: HEMATOCRIT 25.7 % (37-47)
[2017-09-20 07:24] VITALS: BP 139/66; PULSE 69; TEMP 36.5; O2SAT 100
[2017-09-20 07:31] LABS: BUN/CREATININE RATIO 24.9 (10-20); CALCIUM 7.7 mg/dl (8.5-10.1); CREATININE 0.78 mg/dl (0.60-1.20); POTASSIUM 4.2 mmol/L (3.5-5.1)
[2017-09-20] MEDS: ASPIRIN 81 MG ECTAB PO SCH (07:41)
[2017-09-20] MEDS: METOPROLOL SUCC 25MG EXT REL TAB PO SCH (07:42)
[2017-09-20] MEDS: TIMOLOL MALEATE 0.25% OP SOLN 5 ML BTL OPB SCH (07:43)
[2017-09-20] MEDS: D5W AND 1/2NSS + 20MEQ KCL 1,000 ML IV SCH ×2 (07:44→20:56)
[2017-09-20 08:42] LABS: PARTIAL THROMBOPLASTIN RATIO 2.5
[2017-09-20] MEDS: HEPARIN 25,000 UNIT/500ML D5W 500 ML IV PRN (10:40)
[2017-09-20 14:56] VITALS: BP 145/63; PULSE 63; TEMP 36.7; O2SAT 100
[2017-09-20] MEDS: BOOST VANILLA PUDDING CUP PO SCH (17:17)
[2017-09-20] MEDS: DAPTOmycin IV 225 MG in SYRINGE 0 ML IV SCH (17:17)
[2017-09-20] MEDS: CEFEPIME IV 2,000 MG in SYRINGE 7.5 ML IV SCH (17:18)
--- NOTE | 2017-09-20 23:08 | Progress Note ---
Medicine Progress Note Date & Time of Visit: Sep 20, 2017 at 09:50 . Subjective More alert, nonverbal. Appears to be comfortable. No new concerns reported by nursing staff. . Objective Last 8 Hrs Date Time Temp Pulse Resp B/P (MAP) Pulse Ox O2 Delivery O2 Flow Rate FiO2 09/20/17 20:00 Room Air 09/20/17 15:50 Room Air Physical Exam: General- no apparent distress Neck- no JVD Lungs- clear to auscultation Heart- regular, no murmur or gallop appreciated Abdomen- soft, nontender Extremities- contractures of extremities; 1+ edema left lower extremity Neuro- more alert, nonverbal Skin- multiple ulcers bandaged; warm and dry . Laboratory Results: Last 24 Hours Test 09/19/17 23:38 09/20/17 06:46 Hemoglobin 8.1 g/dL Hematocrit 25.7 % Activated Partial Thromboplast Time 78.6 SECONDS 65.1 SECONDS Partial Thromboplastin Ratio 3.0 2.5 Sodium Level 142 mmol/L Potassium Level 4.2 mmol/L Chloride Level 109 mmol/L Carbon Dioxide Level 26 mmol/L Anion Gap 8.0 mmol/L Blood Urea Nitrogen 19 mg/dl Creatinine 0.78 mg/dl Est Creatinine Clear Calc Drug Dose 44.7 ml/min Estimated GFR () 82.6 Estimated GFR (Non- 71.3 BUN/Creatinine Ratio 24.9 Random Glucose 144 mg/dl Calcium Level 7.7 mg/dl Iron Level 20 mcg/dl Total Iron Binding Capacity 102 mcg/dl Transferrin 80 mg/dl Transferrin % Saturation 18 % Ferritin 361.0 ng/ml Vitamin B12 Level 453 pg/mL Folate 6.62 ng/mL Assessment & Plan MULTIPLE DECUBITUS SKIN ULCERS (present on admission) Wound Care Nursing consulted. Cultures growing Staphylococcus aureus, Streptococcus species, and gram- negative bacilli. ID consulted. Continue daptomycin and cefepime. Reposition/turn every 2 hours. Low air loss mattress. Consult Wound Care. Optimize nutritional support. DVT'S BILAT LOWER EXTREMITIES (present on admission) Venous duplex demonstrated extensive DVTs both lower extremities. Started on IV heparin. Continue IV heparin pending long-term plans. CORONARY ARTERY DISEASE Continue aspirin and metoprolol. HYPERTENSION Continue metoprolol. DM TYPE 2 Well-controlled on dietary management. Tight control not indicated given patient's advanced age and comorbidities. Hemoglobin A1c 6.3. Fasting blood sugar this morning = 144. Start insulin per protocol if blood sugars rise significantly. ANEMIA Hgb 9.8 --> 8.4 --> 8.1. Suspect that anemia is chronic/multifactorial with falling H/H due to hemodilution. Check Hemoccult. Serum iron 20, transferrin sat 18%, ferritin 361, vitamin B12 453, folate 6.6. Follow. VTE PROPHYLAXIS Receiving IV heparin for acute bilateral DVT's present on admission. DISPOSITION To be determined. Internal Medicine follow-up with Dr. Bond. given update by phone yesterday. . Current Inpatient Medications: Current Inpatient Medications Medications (Trade) Dose Ordered Sig/Matthew Route Start Time Stop Time Status Last Admin Dose Admin Acetaminophen (Tylenol Tab) 650 mg Q4H PRN PO 09/18/17 15:45 10/18/17 15:44 Ondansetron HCl (Zofran Inj) 4 mg Q6H PRN IV 09/18/17 15:45 10/18/17 15:44 Cefepime HCl 2000 mg/Syringe 20 ml @ 5 mls/min DAILY@1700 IV 09/18/17 17:00 09/28/17 16:59 09/20/17 17:18 5 MLS/MIN Daptomycin 225 mg/ Syringe 4.5 ml @ 5 mls/min DAILY@1800 IV 09/18/17 18:00 09/28/17 17:59 09/20/17 17:17 5 MLS/MIN Cefepime HCl (Consult) 1 ea UD PRN N/A 09/18/17 17:00 10/18/17 16:59 Polyethylene (Miralax Powder Packet) 17 gm DAILY PRN PO 09/18/17 17:45 10/18/17 17:44 09/20/17 17:17 17 GM Aspirin (Ecotrin Tab) 81 mg DAILY PO 09/19/17 08:00 10/19/17 07:59 Metoprolol Succinate (Toprol Xl Tab) 25 mg DAILY PO 09/19/17 08:00 10/19/17 07:59 Timolol Maleate (Timoptic 0.25% Oph Soln) 1 drops DAILY OPB 09/19/17 08:00 10/19/17 07:59 09/20/17 07:43 1 DROPS Heparin Sodium/ Dextrose 500 ml @ 13 mls/hr Q24H PRN IV 09/19/17 00:15 10/19/17 00:14 Future hold 09/20/17 10:40 13 MLS/HR Potassium Chloride/Dextrose/ Sod Cl 1,000 ml @ 80 mls/hr [id number] IV 09/19/17 20:15 10/19/17 20:14 09/20/17 20:56 80 MLS/HR Enteral Nutritional Formula (Boost Pudding) 1 cup TIDM PO 09/20/17 17:00 10/20/17 16:59 09/20/17 17:17 1 CUP
[2017-09-20] MEDS ORDERED: GLUCOSE 10 TABS/TUBE PO PRN (23:30)
[2017-09-20] MEDS ORDERED: GLUCAGON FOR INJ 1 MG VIAL SQ PRN (23:30)
[2017-09-20] MEDS ORDERED: DEXTROSE 50% 50 ML SYR IV PRN (23:30)
[2017-09-20] MEDS ORDERED: GLUCOSE 40% GEL 15 GM TUBE PO PRN (23:30)
[2017-09-20 23:58] VITALS: BP 102/56; PULSE 60; TEMP 37.1; O2SAT 92
[2017-09-21 07:09] VITALS: BP 124/63; PULSE 60; TEMP 36.8; O2SAT 99
[2017-09-21 07:41] LABS: BASO % 0.1 %; BASO ABS # 0.01 K/uL (0-0.2); EOS % 1.6 %; IG% 0.8 %; LYMPH % 15.6 %; LYMPH ABS # 1.35 K/uL (1.2-3.4); MEAN CELL VOLUME 96.5 fL (80-100); MEAN CORPUSCULAR HEMOGLOBIN 30.1 pg (25-34); MEAN CORPUSCULAR HGB CONC 31.2 g/dl (32-36); MEAN PLATELET VOLUME 9.3 fL (7.4-10.4); MONO % 6.8 %; NEUT % 75.1 %; PLATELET COUNT 225 K/uL (130-400); RED BLOOD COUNT 2.59 M/uL (4.2-5.4); WHITE BLOOD COUNT 8.67 K/uL (4.8-10.8)
[2017-09-21 07:50] LABS: PARTIAL THROMBOPLASTIN RATIO 1.7
[2017-09-21 08:07] LABS: COMPLETE YES; ECHINOCYTES 2+
[2017-09-21 08:11] LABS: BUN/CREATININE RATIO 20.4 (10-20); CALCIUM 7.7 mg/dl (8.5-10.1); CREATININE 0.74 mg/dl (0.60-1.20)
[2017-09-21] MEDS ORDERED: HEPARIN IV BOLUS 2,000 UNIT in SYRINGE 0 ML IV ONE (08:30)
[2017-09-21] MEDS: METOPROLOL SUCC 25MG EXT REL TAB PO SCH (09:02)
[2017-09-21] MEDS: ASPIRIN 81 MG ECTAB PO SCH (09:02)
[2017-09-21] MEDS: BOOST VANILLA PUDDING CUP PO SCH ×3 (09:02→18:04)
[2017-09-21] MEDS: TIMOLOL MALEATE 0.25% OP SOLN 5 ML BTL OPB SCH (09:02)
[2017-09-21] MEDS: D5W AND 1/2NSS + 20MEQ KCL 1,000 ML IV SCH ×2 (09:03→23:10)
[2017-09-21] MEDS: INSULIN ASPART 100 UNITS/ML 3 ML PEN SC SCH ×4 (09:05→21:00)
[2017-09-21] MEDS: COLLAGENASE OINT 30 GM TUBE EXT SCH (13:37)
--- NOTE | 2017-09-21 14:57 | Infectious Disease Progress Nt ---
Progress Note Date of Service Sep 21, 2017. Subjective Pt evaluation today including: physical exam, chart review, lab review, review of studies, conversation w/ retail client solutions consultant, review of inpatient medication list No obvious new problems since last visit. Has remained afebrile. Tolerating Abx. Additional Comments: Not obtainable Medications Current Inpatient Medications Medications (Trade) Dose Ordered Sig/Matthew Route Start Time Stop Time Status Last Admin Dose Admin Acetaminophen (Tylenol Tab) 650 mg Q4H PRN PO 09/18/17 15:45 10/18/17 15:44 Ondansetron HCl (Zofran Inj) 4 mg Q6H PRN IV 09/18/17 15:45 10/18/17 15:44 Cefepime HCl 2000 mg/Syringe 20 ml @ 5 mls/min DAILY@1700 IV 09/18/17 17:00 09/28/17 16:59 09/20/17 17:18 5 MLS/MIN Daptomycin 225 mg/ Syringe 4.5 ml @ 5 mls/min DAILY@1800 IV 09/18/17 18:00 09/28/17 17:59 09/20/17 17:17 5 MLS/MIN Cefepime HCl (Consult) 1 ea UD PRN N/A 09/18/17 17:00 10/18/17 16:59 Polyethylene (Miralax Powder Packet) 17 gm DAILY PRN PO 09/18/17 17:45 10/18/17 17:44 09/20/17 17:17 17 GM Aspirin (Ecotrin Tab) 81 mg DAILY PO 09/19/17 08:00 10/19/17 07:59 09/21/17 09:02 81 MG Metoprolol Succinate (Toprol Xl Tab) 25 mg DAILY PO 09/19/17 08:00 10/19/17 07:59 09/21/17 09:02 25 MG Timolol Maleate (Timoptic 0.25% Oph Soln) 1 drops DAILY OPB 09/19/17 08:00 10/19/17 07:59 09/21/17 09:02 1 DROPS Heparin Sodium/ Dextrose 500 ml @ 15 mls/hr Q24H PRN IV 09/19/17 00:15 10/19/17 00:14 Future hold 09/20/17 10:40 13 MLS/HR Potassium Chloride/Dextrose/ Sod Cl 1,000 ml @ 80 mls/hr [id number] IV 09/19/17 20:15 10/19/17 20:14 09/21/17 09:03 80 MLS/HR Enteral Nutritional Formula (Boost Pudding) 1 cup TIDM PO 09/20/17 17:00 10/20/17 16:59 09/21/17 09:02 1 CUP Insulin Aspart (novoLOG ASPART) SLIDING SCALE G... ACHS SC 09/21/17 06:30 10/21/17 06:29 09/21/17 09:05 1 UNITS Glucose (Glucose 40% Gel) 15-30 GRAMS 15 GRAMS... UD PRN PO 09/20/17 23:30 10/20/17 23:29 Glucose (Glucose Chew Tab) 4-8 Tablets 4 Tabl... UD PRN PO 09/20/17 23:30 10/20/17 23:29 Dextrose (Dextrose 50% 50ML Syringe) 25-50ML OF 50% DW IV FOR... UD PRN IV 09/20/17 23:30 10/20/17 23:29 Glucagon (Glucagon Inj) 1 mg UD PRN SQ 09/20/17 23:30 10/20/17 23:29 Collagenase (Santyl Oint) 1 appln DAILY EXT 09/21/17 11:15 10/21/17 11:14 09/21/17 13:37 1 APPLN Objective Vital Signs Date Time Temp Pulse Resp B/P (MAP) Pulse Ox O2 Delivery O2 Flow Rate FiO2 09/21/17 11:37 Room Air 09/21/17 07:09 36.8 60 17 124/63 (83) 99 Room Air 09/21/17 00:00 Room Air 09/20/17 23:58 37.1 60 18 102/56 (71) 92 Room Air 09/20/17 20:00 Room Air 09/20/17 15:50 Room Air 09/20/17 14:56 36.7 63 18 145/63 (90) 100 Room Air Physical Exam General Appearance: WD/WN, no apparent distress Eyes: normal inspection, EOMI, sclerae normal ENT: normal ENT inspection, pharynx normal Neck: supple, no adenopathy, trachea midline Respiratory/Chest: chest non-tender, lungs clear, normal breath sounds, no respiratory distress Cardiovascular: regular rate, rhythm, no gallop, no murmur Abdomen: normal bowel sounds, non tender, soft, no organomegaly Extremities: non-tender, + pertinent finding (contracted extemities) Neurologic/Psychiatric: alert, + disoriented Skin: normal color, no rash, + pertinent finding (dressings intact) Lymphatic: no adenopathy Laboratory Results Last 24 Hours Test 09/21/17 07:22 09/21/17 08:00 09/21/17 11:30 White Blood Count 8.67 K/uL Red Blood Count 2.59 M/uL Hemoglobin 7.8 g/dL Hematocrit 25.0 % Mean Corpuscular Volume 96.5 fL Mean Corpuscular Hemoglobin 30.1 pg Mean Corpuscular Hemoglobin Concent 31.2 g/dl Platelet Count 225 K/uL Mean Platelet Volume 9.3 fL Neutrophils (%) (Auto) 75.1 % Lymphocytes (%) (Auto) 15.6 % Monocytes (%) (Auto) 6.8 % Eosinophils (%) (Auto) 1.6 % Basophils (%) (Auto) 0.1 % Neutrophils # (Auto) 6.51 K/uL Lymphocytes # (Auto) 1.35 K/uL Monocytes # (Auto) 0.59 K/uL Eosinophils # (Auto) 0.14 K/uL Basophils # (Auto) 0.01 K/uL RDW Standard Deviation 45.0 fL RDW Coefficient of Variation 12.9 % Immature Granulocyte % (Auto) 0.8 % Immature Granulocyte # (Auto) 0.07 K/uL Echinocytes 2+ Activated Partial Thromboplast Time 44.3 SECONDS Partial Thromboplastin Ratio 1.7 Sodium Level 139 mmol/L Potassium Level 4.0 mmol/L Chloride Level 108 mmol/L Carbon Dioxide Level 23 mmol/L Anion Gap 8.0 mmol/L Blood Urea Nitrogen 15 mg/dl Creatinine 0.74 mg/dl Est Creatinine Clear Calc Drug Dose 47.2 ml/min Estimated GFR () 88.1 Estimated GFR (Non- 76.0 BUN/Creatinine Ratio 20.4 Random Glucose 170 mg/dl Calcium Level 7.7 mg/dl Bedside Glucose 181 mg/dl 166 mg/dl Assessment and Plan infected left heel ulceration in patient with diabetes mellitus, with culture growing Staph aureus and GNBs, sensitivities pending. Current antibiotic regimen appropriate pending final culture results. Will likely need 7-10 days IV abx.
[2017-09-21 15:05] VITALS: BP 118/59; PULSE 67; TEMP 37.1; O2SAT 100
[2017-09-21 15:52] LABS: PARTIAL THROMBOPLASTIN RATIO 3.2
[2017-09-21] MEDS: HEPARIN 25,000 UNIT/500ML D5W 500 ML IV PRN ×2 (16:38→23:41)
[2017-09-21] MEDS: CEFEPIME IV 2,000 MG in SYRINGE 7.5 ML IV SCH (18:03)
[2017-09-21] MEDS: DAPTOmycin IV 225 MG in SYRINGE 0 ML IV SCH (18:32)
--- NOTE | 2017-09-21 20:31 | Progress Note ---
Medicine Progress Note Date & Time of Visit: Sep 21, 2017 at 09:50 . Subjective Awake, nonverbal. Appears to be comfortable. No BM since admission. No other new concerns reported by staff. . Objective Last 8 Hrs Date Time Temp Pulse Resp B/P (MAP) Pulse Ox O2 Delivery O2 Flow Rate FiO2 09/21/17 15:05 37.1 67 20 118/59 (78) 100 Room Air Physical Exam: General- no apparent distress Neck- no JVD Lungs- clear to auscultation Heart- regular, no murmur or gallop appreciated Abdomen- soft, nontender Extremities- contractures of extremities; 1+ edema left lower extremity Neuro- awake, nonverbal Skin- multiple ulcers bandaged; warm and dry . Laboratory Results: Last 24 Hours Test 09/21/17 07:22 09/21/17 08:00 09/21/17 11:30 09/21/17 15:20 White Blood Count 8.67 K/uL Red Blood Count 2.59 M/uL Hemoglobin 7.8 g/dL Hematocrit 25.0 % Mean Corpuscular Volume 96.5 fL Mean Corpuscular Hemoglobin 30.1 pg Mean Corpuscular Hemoglobin Concent 31.2 g/dl Platelet Count 225 K/uL Mean Platelet Volume 9.3 fL Neutrophils (%) (Auto) 75.1 % Lymphocytes (%) (Auto) 15.6 % Monocytes (%) (Auto) 6.8 % Eosinophils (%) (Auto) 1.6 % Basophils (%) (Auto) 0.1 % Neutrophils # (Auto) 6.51 K/uL Lymphocytes # (Auto) 1.35 K/uL Monocytes # (Auto) 0.59 K/uL Eosinophils # (Auto) 0.14 K/uL Basophils # (Auto) 0.01 K/uL RDW Standard Deviation 45.0 fL RDW Coefficient of Variation 12.9 % Immature Granulocyte % (Auto) 0.8 % Immature Granulocyte # (Auto) 0.07 K/uL Echinocytes 2+ Activated Partial Thromboplast Time 44.3 SECONDS 82.5 SECONDS Partial Thromboplastin Ratio 1.7 3.2 Sodium Level 139 mmol/L Potassium Level 4.0 mmol/L Chloride Level 108 mmol/L Carbon Dioxide Level 23 mmol/L Anion Gap 8.0 mmol/L Blood Urea Nitrogen 15 mg/dl Creatinine 0.74 mg/dl Est Creatinine Clear Calc Drug Dose 47.2 ml/min Estimated GFR () 88.1 Estimated GFR (Non- 76.0 BUN/Creatinine Ratio 20.4 Random Glucose 170 mg/dl Calcium Level 7.7 mg/dl Bedside Glucose 181 mg/dl 166 mg/dl Test 09/21/17 17:25 09/21/17 20:06 Bedside Glucose 162 mg/dl 148 mg/dl Assessment & Plan MULTIPLE DECUBITUS SKIN ULCERS (present on admission) Wound Care Nursing consulted. Cultures growing Staphylococcus aureus, Streptococcus species, and gram- negative bacilli. ID consulted. Avoid pressure. Reposition/turn every 2 hours. Wound Care consulted. Optimize nutritional support. Continue daptomycin and cefepime. DVT'S BILAT LOWER EXTREMITIES (present on admission) Venous duplex demonstrated extensive DVTs both lower extremities. Started on IV heparin. Continue IV heparin pending long-term plans. Consider transition to warfarin if stools heme negative CORONARY ARTERY DISEASE Continue aspirin and metoprolol. HYPERTENSION Continue metoprolol. DM TYPE 2 Well-controlled on dietary management. Hemoglobin A1c 6.3. Fasting blood sugar this morning = 181. Lantus / NovoLog per protocol. ANEMIA Hgb 9.8 --> --> 7.8.. Suspect that anemia is chronic/multifactorial with falling H/H due to hemodilution. Hemoccult pending. Serum iron 20, transferrin sat 18%, ferritin 361, vitamin B12 453, folate 6.6. Start Fe supplementation. Transfusion not clearly indicated at this time, but consider maintaining higher H/H in light of multiple wounds. Follow. VTE PROPHYLAXIS Receiving IV heparin for acute bilateral DVT's present on admission. DISPOSITION To be determined. Anticipate need for skilled care. Case Management consulted. Internal Medicine follow-up with Dr. Bond. . Current Inpatient Medications: Current Inpatient Medications Medications (Trade) Dose Ordered Sig/Matthew Route Start Time Stop Time Status Last Admin Dose Admin Acetaminophen (Tylenol Tab) 650 mg Q4H PRN PO 09/18/17 15:45 10/18/17 15:44 Ondansetron HCl (Zofran Inj) 4 mg Q6H PRN IV 09/18/17 15:45 10/18/17 15:44 Cefepime HCl 2000 mg/Syringe 20 ml @ 5 mls/min DAILY@1700 IV 09/18/17 17:00 09/28/17 16:59 09/21/17 18:03 5 MLS/MIN Daptomycin 225 mg/ Syringe 4.5 ml @ 5 mls/min DAILY@1800 IV 09/18/17 18:00 09/28/17 17:59 09/21/17 18:32 5 MLS/MIN Cefepime HCl (Consult) 1 ea UD PRN N/A 09/18/17 17:00 10/18/17 16:59 Polyethylene (Miralax Powder Packet) 17 gm DAILY PRN PO 09/18/17 17:45 10/18/17 17:44 09/20/17 17:17 17 GM Aspirin (Ecotrin Tab) 81 mg DAILY PO 09/19/17 08:00 10/19/17 07:59 09/21/17 09:02 81 MG Metoprolol Succinate (Toprol Xl Tab) 25 mg DAILY PO 09/19/17 08:00 10/19/17 07:59 09/21/17 09:02 25 MG Timolol Maleate (Timoptic 0.25% Oph Soln) 1 drops DAILY OPB 09/19/17 08:00 10/19/17 07:59 09/21/17 09:02 1 DROPS Heparin Sodium/ Dextrose 500 ml @ 13 mls/hr Q24H PRN IV 09/19/17 00:15 10/19/17 00:14 Future hold 09/21/17 16:38 13 MLS/HR Potassium Chloride/Dextrose/ Sod Cl 1,000 ml @ 80 mls/hr [id number] IV 09/19/17 20:15 10/19/17 20:14 09/21/17 09:03 80 MLS/HR Enteral Nutritional Formula (Boost Pudding) 1 cup TIDM PO 09/20/17 17:00 10/20/17 16:59 09/21/17 18:04 1 CUP Insulin Aspart (novoLOG ASPART) SLIDING SCALE G... ACHS SC 09/21/17 06:30 10/21/17 06:29 09/21/17 09:05 1 UNITS Glucose (Glucose 40% Gel) 15-30 GRAMS 15 GRAMS... UD PRN PO 09/20/17 23:30 10/20/17 23:29 Glucose (Glucose Chew Tab) 4-8 Tablets 4 Tabl... UD PRN PO 09/20/17 23:30 10/20/17 23:29 Dextrose (Dextrose 50% 50ML Syringe) 25-50ML OF 50% DW IV FOR... UD PRN IV 09/20/17 23:30 10/20/17 23:29 Glucagon (Glucagon Inj) 1 mg UD PRN SQ 09/20/17 23:30 10/20/17 23:29 Collagenase (Santyl Oint) 1 appln DAILY EXT 09/21/17 11:15 10/21/17 11:14 09/21/17 13:37 1 APPLN
[2017-09-21] MEDS ORDERED: BISACODYL 10 MG SUPP PR PRN (20:45)
[2017-09-21 22:56] LABS: PARTIAL THROMBOPLASTIN RATIO 2.1
[2017-09-21 23:07] VITALS: BP 96/57; PULSE 61; TEMP 36.7; O2SAT 98
[2017-09-22] MEDS: INSULIN ASPART 100 UNITS/ML 3 ML PEN SC SCH ×4 (06:30→21:00)
[2017-09-22 07:29] VITALS: BP 117/51; PULSE 55; TEMP 36.8; O2SAT 100
[2017-09-22 07:29] LABS: BUN/CREATININE RATIO 14.4 (10-20); CALCIUM 7.6 mg/dl (8.5-10.1); CREATININE 0.75 mg/dl (0.60-1.20); POTASSIUM 4.2 mmol/L (3.5-5.1)
[2017-09-22 08:00] VITALS: O2SAT 100
[2017-09-22] MEDS: METOPROLOL SUCC 25MG EXT REL TAB PO SCH (08:00)
[2017-09-22] MEDS: BOOST VANILLA PUDDING CUP PO SCH ×3 (08:08→17:00)
[2017-09-22] MEDS: COLLAGENASE OINT 30 GM TUBE EXT SCH (08:08)
[2017-09-22] MEDS: TIMOLOL MALEATE 0.25% OP SOLN 5 ML BTL OPB SCH (08:08)
[2017-09-22] MEDS: DOCUSATE SODIUM 100 MG CAP PO SCH ×2 (08:08→08:12)
[2017-09-22] MEDS: ASPIRIN 81 MG ECTAB PO SCH ×2 (08:09→08:22)
[2017-09-22] MEDS ORDERED: NURSING VERBAL MED ORDER ONE (08:45)
[2017-09-22] MEDS: DOCUSATE SODIUM 100 MG/10 ML UDC PO SCH ×2 (09:27→21:03)
[2017-09-22] MEDS ORDERED: OPTIRAY 320 IV PRN (12:45)
[2017-09-22] MEDS: FERROUS SULFATE 325 MG TAB PO SCH (12:49)
--- NOTE | 2017-09-22 12:52 | Wound Consultation: Inpatient ---
Wound Consultation Date of Consultation: Sep 22, 2017. Attending Physician: Ko Torres M.D. Reason for Consultation: Multiple pressure ulcers History of Present Illness Ms. Moncada is an 82-year-old female with history of dementia admitted to [facility] on 09/18/2017 for multiple pressure ulcers to the heel coccyx hip and elbow. Patient was unable to contribute to history of present illness due to mental status no family was available at the time of my consultation and history was obtained from old records. Ulcers have been present for several weeks and patient was seen by PCP decision was made to treat wounds at home at that time but due to increasing blister formation and redness of the wounds as well as declining ADLs patient was evaluated and admitted to [facility]. Family History FH: cancer FATHER (hx larnyx CA, age 91) MOTHER (hx breast CA, age 81) Social History Smoking Status: Never Smoker Alcohol Use: none Drug Use: none Marital Status: Housing Status: lives with significant other Occupation Status: retired Allergies Coded Allergies: No Known Allergies (Unverified , 07/29/14) Home Medications Scheduled Aspirin (Aspirin Ec), 81 MG PO DAILY Atorvastatin (Atorvastatin Calcium), 40 MG PO DAILY Bisacodyl (Dulcolax), 1 TAB PO UD Cholecalciferol (Vitamin D), 1 TAB PO DAILY Losartan Potassium (Cozaar), 50 MG PO DAILY Metoprolol Succinate (Metoprolol Succinate ER), 25 MG PO DAILY Sennosides-Docusate Sodium (Senna Plus), 2 TABS PO DAILY Timolol Maleate (Ophth) (Timoptic 0.25% Oph), 1 DROP OPB DAILY Inpatient Medications Current Inpatient Medications Medications (Trade) Dose Ordered Sig/Matthew Route Start Time Stop Time Status Last Admin Dose Admin Acetaminophen (Tylenol Tab) 650 mg Q4H PRN PO 09/18/17 15:45 10/18/17 15:44 Ondansetron HCl (Zofran Inj) 4 mg Q6H PRN IV 09/18/17 15:45 10/18/17 15:44 Cefepime HCl 2000 mg/Syringe 20 ml @ 5 mls/min DAILY@1700 IV 09/18/17 17:00 09/28/17 16:59 09/21/17 18:03 5 MLS/MIN Daptomycin 225 mg/ Syringe 4.5 ml @ 5 mls/min DAILY@1800 IV 09/18/17 18:00 09/28/17 17:59 09/21/17 18:32 5 MLS/MIN Cefepime HCl (Consult) 1 ea UD PRN N/A 09/18/17 17:00 10/18/17 16:59 Polyethylene (Miralax Powder Packet) 17 gm DAILY PRN PO 09/18/17 17:45 10/18/17 17:44 09/20/17 17:17 17 GM Aspirin (Ecotrin Tab) 81 mg DAILY PO 09/19/17 08:00 10/19/17 07:59 09/21/17 09:02 81 MG Metoprolol Succinate (Toprol Xl Tab) 25 mg DAILY PO 09/19/17 08:00 10/19/17 07:59 09/21/17 09:02 25 MG Timolol Maleate (Timoptic 0.25% Oph Soln) 1 drops DAILY OPB 09/19/17 08:00 10/19/17 07:59 09/22/17 08:08 1 DROPS Heparin Sodium/ Dextrose 500 ml @ 13 mls/hr Q24H PRN IV 09/19/17 00:15 10/19/17 00:14 Future hold 09/21/17 23:41 13 MLS/HR Potassium Chloride/Dextrose/ Sod Cl 1,000 ml @ 50 mls/hr Q20H IV 09/19/17 20:15 10/19/17 20:14 09/21/17 23:10 50 MLS/HR Enteral Nutritional Formula (Boost Pudding) 1 cup TIDM PO 09/20/17 17:00 10/20/17 16:59 09/22/17 08:08 1 CUP Insulin Aspart (novoLOG ASPART) SLIDING SCALE G... ACHS SC 09/21/17 06:30 10/21/17 06:29 09/21/17 09:05 1 UNITS Glucose (Glucose 40% Gel) 15-30 GRAMS 15 GRAMS... UD PRN PO 09/20/17 23:30 10/20/17 23:29 Glucose (Glucose Chew Tab) 4-8 Tablets 4 Tabl... UD PRN PO 09/20/17 23:30 10/20/17 23:29 Dextrose (Dextrose 50% 50ML Syringe) 25-50ML OF 50% DW IV FOR... UD PRN IV 09/20/17 23:30 10/20/17 23:29 Glucagon (Glucagon Inj) 1 mg UD PRN SQ 09/20/17 23:30 10/20/17 23:29 Collagenase (Santyl Oint) 1 appln DAILY EXT 09/21/17 11:15 10/21/17 11:14 09/22/17 08:08 1 APPLN Ferrous Sulfate (Feosol Tab) 325 mg DAILY@1300 PO 09/22/17 13:00 10/22/17 12:59 Bisacodyl (Dulcolax Supp) 10 mg DAILY PRN [place] 09/21/17 20:45 10/21/17 20:44 Docusate Sodium (coLACE SYRUP) 100 mg BID PO 09/22/17 08:45 10/22/17 08:44 09/22/17 09:27 100 MG Ioversol (Optiray 320) 100 ml UD PRN IV 09/22/17 12:45 09/26/17 12:44 UNV Review of Systems Unable to obtain due to patient's mental status Physical Exam Date Time Temp Pulse Resp B/P (MAP) Pulse Ox O2 Delivery O2 Flow Rate FiO2 09/22/17 08:00 100 Room Air 09/22/17 07:29 36.8 55 16 117/51 (73) 100 Room Air 09/22/17 00:00 Room Air 09/21/17 23:07 36.7 61 20 96/57 (70) 98 Room Air 09/21/17 16:00 Room Air 09/21/17 15:05 37.1 67 20 118/59 (78) 100 Room Air General patient is lying in bed in left lateral decubitus position in no acute distress. Patient is not oriented to person place or time Skin exam reveals a specific eschar to the sacral area measuring 9.4 by E.2 with no depth determined. Wound #2 to the right hip measures 6.1 x 8.2 with a depth of 0.6 cm with eschar periwound erythema and drainage present. Wound #3 to the left elbow 3.1 x 2.3 with a depth of 0.6 with slough present and wound # 4 to the left heel measures 7 x 8.2 cm with a depth of 0.2 cm Head: normocephalic Eyes: PERRL ENT: normal ENT inspection Neck: supple Laboratory Results Last 24 Hours Test 09/21/17 15:20 09/21/17 17:25 09/21/17 20:06 09/21/17 22:22 Activated Partial Thromboplast Time 82.5 SECONDS 55.0 SECONDS Partial Thromboplastin Ratio 3.2 2.1 Bedside Glucose 162 mg/dl 148 mg/dl Test 09/22/17 06:29 09/22/17 07:43 09/22/17 11:56 Hemoglobin 7.4 g/dL Hematocrit 24.0 % Activated Partial Thromboplast Time 53.0 SECONDS Partial Thromboplastin Ratio 2.0 Sodium Level 138 mmol/L Potassium Level 4.2 mmol/L Chloride Level 108 mmol/L Carbon Dioxide Level 24 mmol/L Anion Gap 6.0 mmol/L Blood Urea Nitrogen 11 mg/dl Creatinine 0.75 mg/dl Est Creatinine Clear Calc Drug Dose 46.5 ml/min Estimated GFR () 86.6 Estimated GFR (Non- 74.8 BUN/Creatinine Ratio 14.4 Random Glucose 140 mg/dl Calcium Level 7.6 mg/dl Bedside Glucose 146 mg/dl 139 mg/dl Assessment & Plan Assessment #1 unstageable pressure ulcer sacral #2 unstageable pressure ulcer right hip #3 stage III pressure ulcer right elbow #4 unstageable pressure ulcer right heel Plan: The sacral wound was unable to be debrided and wound was scored with a # 11 blade and will use Santyl for the next 48 hours before attempting additional debridement. The wound to the right hip was debrided using scissors and forceps and a curette of eschar slough and subcutaneous tissue. Wound to the right heel and elbow were also debrided using scissors forceps and a curette. Santyl will be applied as stated to the sacrum and hip changed daily with Aquacel Ag to the right heel and elbow. Patient will continue on anabiotic therapy and the direction of Dr. Danielle. CT with contrast to the right hip will be ordered. We will continue with offloading measures. Excisional debridement of 114 cm was performed
--- NOTE | 2017-09-22 13:48 | Progress Note ---
Internal Med Progress Note Date of Service: Sep 22, 2017. Provider Documentation: SUBJECTIVE: The patient was seen and examined Remains stable in Bed Denies any symptoms OBJECTIVE: Vital Signs-as noted below Exam: General-No distress at rest Eyes-Normal ENT-Normal Neck-Supple Lungs-Decreased breath sound bilaterally Minimal bibasilar crackles Heart-Regular,no murmur Abdomen-Benign,no masses,bowel sound present Extremities-In flexed posture Trace edema bilaterally Neuro-AA Not much communicative Lab data as noted below. ASSESSMENT & PLAN: MULTIPLE DECUBITUS SKIN ULCERS (present on admission) Wound Care Nursing consulted. Cultures growing Staphylococcus aureus, Streptococcus species, and gram- negative bacilli. ID consulted-appreciate input . Reposition/turn every 2 hours. Optimize nutritional support. Continue daptomycin and cefepime and wound care as per nursing DVT'S BILAT LOWER EXTREMITIES (present on admission) Venous duplex demonstrated extensive DVTs both lower extremities. Started on IV heparin. Continue IV heparin pending long-term plans. Consider transition to warfarin if stools heme negative-not yet received ANEMIA-Chronic Hgb 9.8 --> --> 7.8.. Suspect that anemia is chronic/multifactorial with falling H/H due to hemodilution Serum iron 20, transferrin sat 18%, ferritin 361, vitamin B12 453, folate 6.6. Start Fe supplementation. Transfusion not clearly indicated at this time, but consider maintaining higher H/H in light of multiple wounds. Hb 7.4 on 09/22 Will transfuse if Hb drops below 7.0 CORONARY ARTERY DISEASE Continue aspirin and metoprolol. No acute issue HYPERTENSION Continue metoprolol. DM TYPE 2 Well-controlled on dietary management. Hemoglobin A1c 6.3. Fasting blood sugar this morning = 181. Lantus / NovoLog per protocol. VTE PROPHYLAXIS Receiving IV heparin for acute bilateral DVT's present on admission. DISPOSITION To be determined. Anticipate need for skilled care. Case Management consulted. Internal Medicine follow-up with Dr. Bond. Vital Signs: Date Time Temp Pulse Resp B/P (MAP) Pulse Ox O2 Delivery O2 Flow Rate FiO2 09/22/17 08:00 100 Room Air 09/22/17 07:29 36.8 55 16 117/51 (73) 100 Room Air 09/22/17 00:00 Room Air 09/21/17 23:07 36.7 61 20 96/57 (70) 98 Room Air 09/21/17 16:00 Room Air 09/21/17 15:05 37.1 67 20 118/59 (78) 100 Room Air Lab Results: Results Past 24 Hours Test 09/21/17 15:20 09/21/17 17:25 09/21/17 20:06 09/21/17 22:22 Range/Units Activated Partial Thromboplast Time 82.5 55.0 21.0-31.0 SECONDS Partial Thromboplastin Ratio 3.2 2.1 Bedside Glucose 162 148 70-90 mg/dl Test 09/22/17 06:29 09/22/17 07:43 09/22/17 11:56 Range/Units Hemoglobin 7.4 12.0-16.0 g/dL Hematocrit 24.0 37-47 % Activated Partial Thromboplast Time 53.0 21.0-31.0 SECONDS Partial Thromboplastin Ratio 2.0 Sodium Level 138 136-145 mmol/L Potassium Level 4.2 3.5-5.1 mmol/L Chloride Level 108 98-107 mmol/L Carbon Dioxide Level 24 21-32 mmol/L Anion Gap 6.0 3-11 mmol/L Blood Urea Nitrogen 11 7-18 mg/dl Creatinine 0.75 0.60-1.20 mg/dl Est Creatinine Clear Calc Drug Dose 46.5 ml/min Estimated GFR () 86.6 Estimated GFR (Non- 74.8 BUN/Creatinine Ratio 14.4 10-20 Random Glucose 140 70-99 mg/dl Calcium Level 7.6 8.5-10.1 mg/dl Bedside Glucose 146 139 70-90 mg/dl
--- NOTE | 2017-09-22 14:52 | DIAGNOSTIC IMAGING REPORT ---
R HIP-LOWER EXTREMITY WITH CLINICAL HISTORY: 82 years-old Female presenting with non-healing wound. TECHNIQUE: Multidetector CT of the right hip was performed after the administration of intravenous contrast. IV contrast: 120 mL of Optiray 320. A dose lowering technique was used consistent with the principles of ALARA (as low as reasonably achievable). COMPARISON: Plain radiograph of the pelvis from 07/29/2014. CT DOSE (mGy.cm): The estimated cumulative dose is 170.36 mGy.cm. FINDINGS: [employer] topogram: Unremarkable. Right hip joint congruent. Primarily medial joint space loss noted at the hip joint. Osteophytosis also present, evidence of degenerative change. Overlying the greater trochanter is a defect of the cutis and subcutaneous tissue with an associated laminar collection of fluid or phlegmonous material measuring 7.2 x 1.3 x 3.9 cm (series 2 image 20; series 300 image 21). This demonstrates mild rim enhancement and is contiguous with the overlying defect. This does not appear to track deep to the iliotibial band. However, there is fluid within the distended right trochanteric bursa. No masha evidence of osseous erosion or periosteal reaction. Extensive subcutaneous edema noted along the lateral and posterior right thigh. Remaining pelvic structures demonstrate moderate stool burden. A Nance catheter is in place in the decompressed urinary bladder. Atherosclerosis. Apparent filling defect in the common femoral vein (series 2 image 18). IMPRESSION: 1. Decubitus ulcer over the right greater trochanter with associated laminar fluid or phlegmonous material contiguous with overlying defect. This does not appear to track the to the iliotibial band. 2. Subjacent right greater trochanteric bursitis. Infection cannot be excluded. 3. No CT evidence of osteomyelitis. 4. Degenerative changes of the right hip joint. Electronically signed by: Felipe Costello M.D. 09/22/2017 2:51 PM Dictated Date/Time: 09/22/2017 2:43 PM
[2017-09-22 14:53] VITALS: BP 137/67; PULSE 78; TEMP 36.5; O2SAT 98
--- NOTE | 2017-09-22 15:08 | Infectious Disease Progress Nt ---
Progress Note Date of Service Sep 22, 2017. Subjective Pt evaluation today including: physical exam, chart review, lab review, review of studies, conversation w/ wellness consultant, review of inpatient medication list Wound care consultation noted. Patient now status post debridement of several wounds. Appears comfortable, no obvious distress. Remains afebrile. Additional Comments: Not obtainable because of patient's mental status Medications Current Inpatient Medications Medications (Trade) Dose Ordered Sig/Matthew Route Start Time Stop Time Status Last Admin Dose Admin Acetaminophen (Tylenol Tab) 650 mg Q4H PRN PO 09/18/17 15:45 10/18/17 15:44 Ondansetron HCl (Zofran Inj) 4 mg Q6H PRN IV 09/18/17 15:45 10/18/17 15:44 Cefepime HCl 2000 mg/Syringe 20 ml @ 5 mls/min DAILY@1700 IV 09/18/17 17:00 09/28/17 16:59 09/21/17 18:03 5 MLS/MIN Daptomycin 225 mg/ Syringe 4.5 ml @ 5 mls/min DAILY@1800 IV 09/18/17 18:00 09/28/17 17:59 09/21/17 18:32 5 MLS/MIN Cefepime HCl (Consult) 1 ea UD PRN N/A 09/18/17 17:00 10/18/17 16:59 Polyethylene (Miralax Powder Packet) 17 gm DAILY PRN PO 09/18/17 17:45 10/18/17 17:44 09/20/17 17:17 17 GM Aspirin (Ecotrin Tab) 81 mg DAILY PO 09/19/17 08:00 10/19/17 07:59 09/21/17 09:02 81 MG Metoprolol Succinate (Toprol Xl Tab) 25 mg DAILY PO 09/19/17 08:00 10/19/17 07:59 09/21/17 09:02 25 MG Timolol Maleate (Timoptic 0.25% Oph Soln) 1 drops DAILY OPB 09/19/17 08:00 10/19/17 07:59 09/22/17 08:08 1 DROPS Heparin Sodium/ Dextrose 500 ml @ 13 mls/hr Q24H PRN IV 09/19/17 00:15 10/19/17 00:14 Future hold 09/21/17 23:41 13 MLS/HR Potassium Chloride/Dextrose/ Sod Cl 1,000 ml @ 50 mls/hr Q20H IV 09/19/17 20:15 10/19/17 20:14 09/21/17 23:10 50 MLS/HR Enteral Nutritional Formula (Boost Pudding) 1 cup TIDM PO 09/20/17 17:00 10/20/17 16:59 09/22/17 12:50 1 CUP Insulin Aspart (novoLOG ASPART) SLIDING SCALE G... ACHS SC 09/21/17 06:30 10/21/17 06:29 09/21/17 09:05 1 UNITS Glucose (Glucose 40% Gel) 15-30 GRAMS 15 GRAMS... UD PRN PO 09/20/17 23:30 10/20/17 23:29 Glucose (Glucose Chew Tab) 4-8 Tablets 4 Tabl... UD PRN PO 09/20/17 23:30 10/20/17 23:29 Dextrose (Dextrose 50% 50ML Syringe) 25-50ML OF 50% DW IV FOR... UD PRN IV 09/20/17 23:30 10/20/17 23:29 Glucagon (Glucagon Inj) 1 mg UD PRN SQ 09/20/17 23:30 10/20/17 23:29 Collagenase (Santyl Oint) 1 appln DAILY EXT 09/21/17 11:15 10/21/17 11:14 09/22/17 08:08 1 APPLN Ferrous Sulfate (Feosol Tab) 325 mg DAILY@1300 PO 09/22/17 13:00 10/22/17 12:59 09/22/17 12:49 325 MG Bisacodyl (Dulcolax Supp) 10 mg DAILY PRN [place] 09/21/17 20:45 10/21/17 20:44 Docusate Sodium (coLACE SYRUP) 100 mg BID PO 09/22/17 08:45 10/22/17 08:44 09/22/17 09:27 100 MG Ioversol (Optiray 320) 100 ml UD PRN IV 09/22/17 12:45 09/26/17 12:44 Objective Vital Signs Date Time Temp Pulse Resp B/P (MAP) Pulse Ox O2 Delivery O2 Flow Rate FiO2 09/22/17 14:53 36.5 78 18 137/67 (90) 98 Room Air 09/22/17 08:00 100 Room Air 09/22/17 07:29 36.8 55 16 117/51 (73) 100 Room Air 09/22/17 00:00 Room Air 09/21/17 23:07 36.7 61 20 96/57 (70) 98 Room Air 09/21/17 16:00 Room Air Physical Exam General Appearance: WD/WN, no apparent distress Eyes: normal inspection, EOMI, sclerae normal ENT: normal ENT inspection, pharynx normal Neck: supple, no adenopathy, trachea midline Respiratory/Chest: chest non-tender, lungs clear, normal breath sounds, no respiratory distress Cardiovascular: regular rate, rhythm, no gallop, no murmur Abdomen: normal bowel sounds, non tender, soft, no organomegaly Extremities: non-tender, no calf tenderness Neurologic/Psychiatric: alert, + disoriented Skin: normal color, no rash, + pertinent finding (Dressings intact elbow and heel) Lymphatic: no adenopathy Laboratory Results Last 24 Hours Test 09/21/17 15:20 09/21/17 17:25 09/21/17 20:06 09/21/17 22:22 Activated Partial Thromboplast Time 82.5 SECONDS 55.0 SECONDS Partial Thromboplastin Ratio 3.2 2.1 Bedside Glucose 162 mg/dl 148 mg/dl Test 09/22/17 06:29 09/22/17 07:43 09/22/17 11:56 Hemoglobin 7.4 g/dL Hematocrit 24.0 % Activated Partial Thromboplast Time 53.0 SECONDS Partial Thromboplastin Ratio 2.0 Sodium Level 138 mmol/L Potassium Level 4.2 mmol/L Chloride Level 108 mmol/L Carbon Dioxide Level 24 mmol/L Anion Gap 6.0 mmol/L Blood Urea Nitrogen 11 mg/dl Creatinine 0.75 mg/dl Est Creatinine Clear Calc Drug Dose 46.5 ml/min Estimated GFR () 86.6 Estimated GFR (Non- 74.8 BUN/Creatinine Ratio 14.4 Random Glucose 140 mg/dl Calcium Level 7.6 mg/dl Bedside Glucose 146 mg/dl 139 mg/dl Assessment and Plan infected left heel ulceration in patient with diabetes mellitus, with culture growing Staph aureus and GNBs, sensitivities pending. Current antibiotic regimen appropriate pending final culture results. Will likely need 7-10 days IV abx.
[2017-09-22] MEDS: CEFEPIME IV 2,000 MG in SYRINGE 7.5 ML IV SCH (17:46)
[2017-09-22] MEDS: DAPTOmycin IV 225 MG in SYRINGE 0 ML IV SCH (17:46)
[2017-09-22 18:00] VITALS: O2SAT 100
[2017-09-22] MEDS: D5W AND 1/2NSS + 20MEQ KCL 1,000 ML IV SCH (21:02)
[2017-09-22 23:16] VITALS: BP 131/69; PULSE 77; TEMP 36.3; O2SAT 98
[2017-09-23 07:30] LABS: HEMATOCRIT 23.5 % (37-47); MEAN CELL VOLUME 94.4 fL (80-100); MEAN CORPUSCULAR HEMOGLOBIN 30.5 pg (25-34); MEAN CORPUSCULAR HGB CONC 32.3 g/dl (32-36); MEAN PLATELET VOLUME 9.3 fL (7.4-10.4); PLATELET COUNT 281 K/uL (130-400); RED BLOOD COUNT 2.49 M/uL (4.2-5.4); WHITE BLOOD COUNT 7.02 K/uL (4.8-10.8)
[2017-09-23 07:48] LABS: PARTIAL THROMBOPLASTIN RATIO 2.1
[2017-09-23 07:49] LABS: ACANTHOCYTES 2+; BASO % 0.1 %; BASO ABS # 0.01 K/uL (0-0.2); COMPLETE YES; EOS % 2.6 %; IG% 1.3 %; LYMPH % 20.5 %; LYMPH ABS # 1.44 K/uL (1.2-3.4); NEUT % 67.5 %
[2017-09-23 07:54] VITALS: PULSE 68; TEMP 37.4; O2SAT 97
[2017-09-23] MEDS: DOCUSATE SODIUM 100 MG/10 ML UDC PO SCH ×2 (08:56→20:52)
[2017-09-23] MEDS: METOPROLOL SUCC 25MG EXT REL TAB PO SCH (08:56)
[2017-09-23] MEDS: ASPIRIN 81 MG ECTAB PO SCH (08:56)
[2017-09-23] MEDS: COLLAGENASE OINT 30 GM TUBE EXT SCH (08:57)
[2017-09-23] MEDS: TIMOLOL MALEATE 0.25% OP SOLN 5 ML BTL OPB SCH (08:57)
[2017-09-23 09:00] VITALS: O2SAT 97
[2017-09-23] MEDS: INSULIN ASPART 100 UNITS/ML 3 ML PEN SC SCH ×4 (09:05→20:52)
[2017-09-23] MEDS: BOOST VANILLA PUDDING CUP PO SCH ×3 (09:06→16:27)
[2017-09-23 10:30] VITALS: BP 100/64
[2017-09-23] MEDS: FERROUS SULFATE 325 MG TAB PO SCH (12:55)
[2017-09-23] MEDS: HEPARIN 25,000 UNIT/500ML D5W 500 ML IV PRN (13:22)
--- NOTE | 2017-09-23 14:42 | Progress Note ---
Internal Med Progress Note Date of Service: Sep 23, 2017. Provider Documentation: SUBJECTIVE: The patient was seen and examined Remains stable in Bed Denies any symptoms No issue identified OBJECTIVE: Vital Signs-as noted below Exam: General-No distress at rest Eyes-Normal ENT-Normal Neck-Supple Lungs-Decreased breath sound bilaterally Minimal bibasilar crackles Heart-Regular,no murmur Abdomen-Benign,no masses,bowel sound present Extremities-In flexed posture Trace edema bilaterally Has multiple Decubitus ulcers as in the photoes Neuro-AA Not much communicative Lab data as noted below. ASSESSMENT & PLAN: MULTIPLE DECUBITUS SKIN ULCERS (present on admission) Please see the Photo-sacrum,right Hip,Right Heel and other areas Wound Care Nursing consulted. Cultures growing Staphylococcus aureus, Streptococcus species, and gram- negative bacilli. ID consulted-appreciate input . Reposition/turn every 2 hours. Optimize nutritional support. Continue daptomycin and cefepime and wound care as per nursing Will need 7 to 10 days of IV antibiotics DVT'S BILAT LOWER EXTREMITIES (present on admission) Venous duplex demonstrated extensive DVTs both lower extremities. Started on IV heparin. Continue IV heparin pending long-term plans. Consider transition to warfarin if stools heme negative-not yet received Hb not dropped -will start Coumadin ANEMIA-Chronic Hgb 9.8 --> --> 7.8.. Suspect that anemia is chronic/multifactorial with falling H/H due to hemodilution Serum iron 20, transferrin sat 18%, ferritin 361, vitamin B12 453, folate 6.6. Start Fe supplementation. Transfusion not clearly indicated at this time, but consider maintaining higher H/H in light of multiple wounds. Hb 7.4 on 09/22 Will transfuse if Hb drops below 7.0 CORONARY ARTERY DISEASE Continue aspirin and metoprolol. No acute issue HYPERTENSION Continue metoprolol. DM TYPE 2 Well-controlled on dietary management. Hemoglobin A1c 6.3. Fasting blood sugar this morning = 181. Lantus / NovoLog per protocol. VTE PROPHYLAXIS Receiving IV heparin for acute bilateral DVT's present on admission. DISPOSITION To be determined. Anticipate need for skilled care. Case Management consulted. Internal Medicine follow-up with Dr. Bond. Vital Signs: Date Time Temp Pulse Resp B/P (MAP) Pulse Ox O2 Delivery O2 Flow Rate FiO2 09/23/17 10:30 100/64 (76) 09/23/17 09:00 97 Room Air 09/23/17 08:59 Room Air 09/23/17 07:54 37.4 68 97 Room Air 09/23/17 00:00 Room Air 09/22/17 23:16 36.3 77 16 131/69 (89) 98 Room Air 09/22/17 20:00 Room Air 09/22/17 18:00 100 Room Air 09/22/17 14:53 36.5 78 18 137/67 (90) 98 Room Air Lab Results: Results Past 24 Hours Test 09/22/17 16:25 09/22/17 20:11 09/23/17 06:48 09/23/17 07:42 Range/Units Bedside Glucose 145 169 141 70-90 mg/dl White Blood Count 7.02 4.8-10.8 K/uL Red Blood Count 2.49 4.2-5.4 M/uL Hemoglobin 7.6 12.0-16.0 g/dL Hematocrit 23.5 37-47 % Mean Corpuscular Volume 94.4 80-100 fL Mean Corpuscular Hemoglobin 30.5 25-34 pg Mean Corpuscular Hemoglobin Concent 32.3 32-36 g/dl Platelet Count 281 130-400 K/uL Mean Platelet Volume 9.3 7.4-10.4 fL Neutrophils (%) (Auto) 67.5 % Lymphocytes (%) (Auto) 20.5 % Monocytes (%) (Auto) 8.0 % Eosinophils (%) (Auto) 2.6 % Basophils (%) (Auto) 0.1 % Neutrophils # (Auto) 4.74 1.4-6.5 K/uL Lymphocytes # (Auto) 1.44 1.2-3.4 K/uL Monocytes # (Auto) 0.56 0.11-0.59 K/uL Eosinophils # (Auto) 0.18 0-0.5 K/uL Basophils # (Auto) 0.01 0-0.2 K/uL RDW Standard Deviation 44.0 36.4-46.3 fL RDW Coefficient of Variation 12.8 11.5-14.5 % Immature Granulocyte % (Auto) 1.3 % Immature Granulocyte # (Auto) 0.09 0.00-0.02 K/uL Acanthocytes 2+ Activated Partial Thromboplast Time 55.8 21.0-31.0 SECONDS Partial Thromboplastin Ratio 2.1 Total Creatine Kinase 44 26-192 U/L Test 09/23/17 11:14 Range/Units Bedside Glucose 146 70-90 mg/dl
[2017-09-23 15:07] VITALS: BP 127/58; PULSE 59; TEMP 36.2; O2SAT 97
[2017-09-23] MEDS: D5W AND 1/2NSS + 20MEQ KCL 1,000 ML IV SCH (15:30)
[2017-09-23] MEDS: CEFEPIME IV 2,000 MG in SYRINGE 7.5 ML IV SCH (16:27)
[2017-09-23] MEDS: WARFARIN SOD 5 MG TAB PO SCH (16:31)
[2017-09-23] MEDS: DAPTOmycin IV 225 MG in SYRINGE 0 ML IV SCH (18:15)
[2017-09-24 00:11] VITALS: BP 114/55; PULSE 57; TEMP 36.9; O2SAT 97
[2017-09-24 07:05] VITALS: BP 99/71; PULSE 62; TEMP 37.1; O2SAT 97
[2017-09-24 07:49] LABS: PARTIAL THROMBOPLASTIN RATIO 2.1
[2017-09-24 08:30] VITALS: O2SAT 97
[2017-09-24] MEDS: ASPIRIN 81 MG ECTAB PO SCH (08:31)
[2017-09-24] MEDS: DOCUSATE SODIUM 100 MG/10 ML UDC PO SCH ×2 (08:32→20:34)
[2017-09-24] MEDS: COLLAGENASE OINT 30 GM TUBE EXT SCH (08:33)
[2017-09-24] MEDS: BOOST VANILLA PUDDING CUP PO SCH ×3 (08:34→18:15)
[2017-09-24] MEDS: METOPROLOL SUCC 25MG EXT REL TAB PO SCH (08:34)
[2017-09-24] MEDS: TIMOLOL MALEATE 0.25% OP SOLN 5 ML BTL OPB SCH (08:34)
[2017-09-24] MEDS: INSULIN ASPART 100 UNITS/ML 3 ML PEN SC SCH ×4 (08:38→20:42)
[2017-09-24 11:13] VITALS: BP 135/71; PULSE 67; TEMP 36.7; O2SAT 99
[2017-09-24] MEDS: D5W AND 1/2NSS + 20MEQ KCL 1,000 ML IV SCH (12:36)
[2017-09-24] MEDS: FERROUS SULFATE 325 MG TAB PO SCH (12:36)
[2017-09-24 14:38] VITALS: BP 117/69; PULSE 74; TEMP 36.8; O2SAT 96
[2017-09-24] MEDS: CEFEPIME IV 2,000 MG in SYRINGE 7.5 ML IV SCH (16:46)
[2017-09-24] MEDS: WARFARIN SOD 5 MG TAB PO SCH (16:47)
--- NOTE | 2017-09-24 17:03 | Progress Note ---
Internal Med Progress Note Date of Service: Sep 24, 2017. Provider Documentation: SUBJECTIVE: The patient was seen and examined Remains stable in Bed Denies any symptoms No issue identified Not communicating today OBJECTIVE: Vital Signs-as noted below Exam: General-No distress at rest remains in flexed posture Eyes-Normal ENT-Normal Neck-Supple Lungs-Decreased breath sound bilaterally Minimal bibasilar crackles Heart-Regular,no murmur Abdomen-Benign,no masses,bowel sound present Extremities-In flexed posture Trace edema bilaterally Has multiple Decubitus ulcers as in the photos Neuro-AA Not much communicative Lab data as noted below. ASSESSMENT & PLAN: MULTIPLE DECUBITUS SKIN ULCERS (present on admission) Please see the Photo-sacrum,right Hip,Right Heel and other areas Wound Care Nursing consulted. Cultures growing Staphylococcus aureus, Streptococcus species, and gram- negative bacilli. ID consulted-appreciate input . Reposition/turn every 2 hours. Optimize nutritional support. Continue daptomycin and cefepime and wound care as per nursing Will need 7 to 10 days of IV antibiotics Debridement as per Wound care provider DVT'S BILAT LOWER EXTREMITIES (present on admission) Venous duplex demonstrated extensive DVTs both lower extremities. Started on IV heparin. Continue IV heparin pending long-term plans. Consider transition to warfarin if stools heme negative-not yet received Hb not dropped Coumadin restarted ANEMIA-Chronic Hgb 9.8 --> --> 7.8.. Suspect that anemia is chronic/multifactorial with falling H/H due to hemodilution Serum iron 20, transferrin sat 18%, ferritin 361, vitamin B12 453, folate 6.6. Start Fe supplementation. Transfusion not clearly indicated at this time, but consider maintaining higher H/H in light of multiple wounds. Hb 7.4 on 09/22 Will transfuse if Hb drops below 7.0 Will monitor Hb CORONARY ARTERY DISEASE Continue aspirin and metoprolol. No acute issue HYPERTENSION Continue metoprolol. Remains stable DM TYPE 2 Well-controlled on dietary management. Hemoglobin A1c 6.3. Fasting blood sugar this morning = 181. Lantus / NovoLog per protocol. VTE PROPHYLAXIS Receiving IV heparin for acute bilateral DVT's present on admission. DISPOSITION To be determined. Anticipate need for skilled care. Case Management consulted. Internal Medicine follow-up with Dr. Bond. Vital Signs: Date Time Temp Pulse Resp B/P (MAP) Pulse Ox O2 Delivery O2 Flow Rate FiO2 09/24/17 14:38 36.8 74 18 117/69 (85) 96 Room Air 09/24/17 11:13 36.7 67 20 135/71 (92) 99 Room Air 09/24/17 08:30 97 Room Air 09/24/17 07:05 37.1 62 16 99/71 (80) 97 Room Air 09/24/17 00:11 36.9 57 16 114/55 (74) 97 Room Air 09/24/17 00:00 Room Air 09/23/17 20:00 Room Air Lab Results: Results Past 24 Hours Test 09/23/17 20:21 09/24/17 07:14 09/24/17 07:38 09/24/17 11:27 Range/Units Bedside Glucose 135 147 128 70-90 mg/dl Activated Partial Thromboplast Time 55.2 21.0-31.0 SECONDS Partial Thromboplastin Ratio 2.1 Test 09/24/17 16:13 Range/Units Bedside Glucose 158 70-90 mg/dl
[2017-09-24] MEDS: DAPTOmycin IV 225 MG in SYRINGE 0 ML IV SCH (17:28)
--- NOTE | 2017-09-24 20:34 | Infectious Disease Progress Nt ---
Progress Note Date of Service Sep 24, 2017. Subjective Pt evaluation today including: physical exam, chart review, lab review, review of studies, conversation w/ product management consultant, review of inpatient medication list Patient not answering questions today. Remains afebrile. Appears to be tolerating antibiotic without apparent difficulty. All Other Systems: Reviewed and Negative Medications Current Inpatient Medications Medications (Trade) Dose Ordered Sig/Matthew Route Start Time Stop Time Status Last Admin Dose Admin Acetaminophen (Tylenol Tab) 650 mg Q4H PRN PO 09/18/17 15:45 10/18/17 15:44 Ondansetron HCl (Zofran Inj) 4 mg Q6H PRN IV 09/18/17 15:45 10/18/17 15:44 Cefepime HCl 2000 mg/Syringe 20 ml @ 5 mls/min DAILY@1700 IV 09/18/17 17:00 09/28/17 16:59 09/24/17 16:46 5 MLS/MIN Daptomycin 225 mg/ Syringe 4.5 ml @ 5 mls/min DAILY@1800 IV 09/18/17 18:00 09/28/17 17:59 09/24/17 17:28 5 MLS/MIN Cefepime HCl (Consult) 1 ea UD PRN N/A 09/18/17 17:00 10/18/17 16:59 Polyethylene (Miralax Powder Packet) 17 gm DAILY PRN PO 09/18/17 17:45 10/18/17 17:44 09/20/17 17:17 17 GM Aspirin (Ecotrin Tab) 81 mg DAILY PO 09/19/17 08:00 10/19/17 07:59 09/24/17 08:31 81 MG Metoprolol Succinate (Toprol Xl Tab) 25 mg DAILY PO 09/19/17 08:00 10/19/17 07:59 09/23/17 08:56 25 MG Timolol Maleate (Timoptic 0.25% Oph Soln) 1 drops DAILY OPB 09/19/17 08:00 10/19/17 07:59 09/24/17 08:34 1 DROPS Heparin Sodium/ Dextrose 500 ml @ 13 mls/hr Q24H PRN IV 09/19/17 00:15 10/19/17 00:14 Future hold 09/23/17 13:22 13 MLS/HR Potassium Chloride/Dextrose/ Sod Cl 1,000 ml @ 50 mls/hr Q20H IV 09/19/17 20:15 10/19/17 20:14 09/24/17 12:36 50 MLS/HR Enteral Nutritional Formula (Boost Pudding) 1 cup TIDM PO 09/20/17 17:00 10/20/17 16:59 09/24/17 12:36 1 CUP Insulin Aspart (novoLOG ASPART) SLIDING SCALE G... ACHS SC 09/21/17 06:30 10/21/17 06:29 09/23/17 09:05 1 UNITS Glucose (Glucose 40% Gel) 15-30 GRAMS 15 GRAMS... UD PRN PO 09/20/17 23:30 10/20/17 23:29 Glucose (Glucose Chew Tab) 4-8 Tablets 4 Tabl... UD PRN PO 09/20/17 23:30 10/20/17 23:29 Dextrose (Dextrose 50% 50ML Syringe) 25-50ML OF 50% DW IV FOR... UD PRN IV 09/20/17 23:30 10/20/17 23:29 Glucagon (Glucagon Inj) 1 mg UD PRN SQ 09/20/17 23:30 10/20/17 23:29 Collagenase (Santyl Oint) 1 appln DAILY EXT 09/21/17 11:15 10/21/17 11:14 09/24/17 08:33 1 APPLN Ferrous Sulfate (Feosol Tab) 325 mg DAILY@1300 PO 09/22/17 13:00 10/22/17 12:59 09/24/17 12:36 325 MG Bisacodyl (Dulcolax Supp) 10 mg DAILY PRN CO 09/21/17 20:45 10/21/17 20:44 Docusate Sodium (coLACE SYRUP) 100 mg BID PO 09/22/17 08:45 10/22/17 08:44 09/24/17 08:32 100 MG Ioversol (Optiray 320) 100 ml UD PRN IV 09/22/17 12:45 09/26/17 12:44 Warfarin Sodium (Coumadin Tab) 5 mg DAILY@16 PO 09/23/17 16:00 10/23/17 15:59 09/24/17 16:47 5 MG Objective Vital Signs Date Time Temp Pulse Resp B/P (MAP) Pulse Ox O2 Delivery O2 Flow Rate FiO2 09/24/17 16:30 Room Air 09/24/17 14:38 36.8 74 18 117/69 (85) 96 Room Air 09/24/17 11:13 36.7 67 20 135/71 (92) 99 Room Air 09/24/17 08:30 97 Room Air 09/24/17 07:05 37.1 62 16 99/71 (80) 97 Room Air 09/24/17 00:11 36.9 57 16 114/55 (74) 97 Room Air 09/24/17 00:00 Room Air Physical Exam General Appearance: WD/WN, no apparent distress Eyes: normal inspection, sclerae normal ENT: normal ENT inspection, pharynx normal Neck: supple, no adenopathy, trachea midline Respiratory/Chest: chest non-tender, lungs clear, normal breath sounds, no respiratory distress Cardiovascular: regular rate, rhythm, no gallop, no murmur Abdomen: normal bowel sounds, non tender, soft, no organomegaly Extremities: non-tender, no calf tenderness Neurologic/Psychiatric: alert, + disoriented Skin: normal color, no rash, + pertinent finding (Ulcerations appear to be improving) Lymphatic: no adenopathy Laboratory Results Last 24 Hours Test 09/24/17 07:14 09/24/17 07:38 09/24/17 11:27 09/24/17 16:13 Activated Partial Thromboplast Time 55.2 SECONDS Partial Thromboplastin Ratio 2.1 Bedside Glucose 147 mg/dl 128 mg/dl 158 mg/dl Assessment and Plan infected left heel ulceration in patient with diabetes mellitus, with culture growing Staph aureus and Acinetobacter. Patient be continued on current antibiotics and will base length of IV antibiotics on clinical response.
[2017-09-24 23:42] VITALS: BP 126/65; PULSE 76; TEMP 37.2; O2SAT 96
[2017-09-25] MEDS: HEPARIN 25,000 UNIT/500ML D5W 500 ML IV PRN (05:26)
[2017-09-25] MEDS: INSULIN ASPART 100 UNITS/ML 3 ML PEN SC SCH ×4 (06:30→21:00)
[2017-09-25 07:20] VITALS: BP 149/78; PULSE 67; TEMP 36.5; O2SAT 97
[2017-09-25 07:42] LABS: BASO % 0.3 %; BASO ABS # 0.02 K/uL (0-0.2); EOS % 2.7 %; HEMATOCRIT 26.3 % (37-47); IG% 1.8 %; LYMPH % 23.6 %; LYMPH ABS # 1.68 K/uL (1.2-3.4); MEAN CELL VOLUME 94.9 fL (80-100); MEAN CORPUSCULAR HGB CONC 31.6 g/dl (32-36); MEAN PLATELET VOLUME 8.8 fL (7.4-10.4); MONO % 9.7 %; NEUT % 61.9 %; PLATELET COUNT 299 K/uL (130-400); RED BLOOD COUNT 2.77 M/uL (4.2-5.4); WHITE BLOOD COUNT 7.12 K/uL (4.8-10.8)
[2017-09-25 07:59] LABS: INR 1.6 (0.9-1.1); PARTIAL THROMBOPLASTIN RATIO 2.7; PROTHROMBIN TIME (PATIENT) 17.1 SECONDS (9.0-12.0)
[2017-09-25 08:10] LABS: ACANTHOCYTES 1+; COMPLETE YES; HYPERSEGMENTED POLYS 1+; SCHISTOCYTES 1+; VACUOLIZATION 1+
[2017-09-25] MEDS: D5W AND 1/2NSS + 20MEQ KCL 1,000 ML IV SCH (09:18)
[2017-09-25] MEDS: ASPIRIN 81 MG ECTAB PO SCH (09:19)
[2017-09-25] MEDS: FERROUS SULFATE 325 MG TAB PO SCH (09:19)
[2017-09-25] MEDS: BOOST VANILLA PUDDING CUP PO SCH ×3 (09:19→16:45)
[2017-09-25] MEDS: DOCUSATE SODIUM 100 MG/10 ML UDC PO SCH ×2 (09:20→21:15)
[2017-09-25] MEDS: METOPROLOL SUCC 25MG EXT REL TAB PO SCH (09:20)
[2017-09-25] MEDS: TIMOLOL MALEATE 0.25% OP SOLN 5 ML BTL OPB SCH (09:21)
[2017-09-25] MEDS: COLLAGENASE OINT 30 GM TUBE EXT SCH (09:22)
[2017-09-25 14:54] VITALS: BP 140/70; PULSE 65; TEMP 37.1; O2SAT 97
[2017-09-25] MEDS: WARFARIN SOD 5 MG TAB PO SCH (16:45)
[2017-09-25] MEDS: CEFEPIME IV 2,000 MG in SYRINGE 7.5 ML IV SCH (16:45)
--- NOTE | 2017-09-25 16:49 | Progress Note ---
Internal Med Progress Note Date of Service: Sep 25, 2017. Provider Documentation: SUBJECTIVE: The patient was seen and examined Remains stable in Bed and bedbound Denies any symptoms OBJECTIVE: Vital Signs-as noted below Exam: General-No distress at rest remains in flexed posture and minimally communicative Eyes-Normal ENT-Normal Neck-Supple Lungs-Decreased breath sound bilaterally Minimal bibasilar crackles Heart-Regular,no murmur Abdomen-Benign,no masses,bowel sound present Extremities-In flexed posture Trace edema bilaterally Has multiple Decubitus ulcers as in the photos Neuro-AA Not much communicative Lab data as noted below. ASSESSMENT & PLAN: MULTIPLE DECUBITUS SKIN ULCERS (present on admission) Please see the Photo-sacrum,right Hip,Right Heel and other areas Wound Care Nursing consulted. Cultures growing Staphylococcus aureus, Streptococcus species, and gram- negative bacilli. ID consulted-appreciate input . Reposition/turn every 2 hours. Optimize nutritional support. Continue daptomycin and cefepime and wound care as per nursing Will need 7 to 10 days of IV antibiotics Debridement as per Wound care provider Continue current antibiotics for now : Day 7 now DVT'S BILAT LOWER EXTREMITIES (present on admission) Venous duplex demonstrated extensive DVTs both lower extremities. Started on IV heparin. Continue IV heparin pending long-term plans. Consider transition to warfarin if stools heme negative-not yet received Hb not dropped Coumadin restarted-INR 1.6 today ANEMIA-Chronic Hgb 9.8 --> --> 7.8.. Suspect that anemia is chronic/multifactorial with falling H/H due to hemodilution Serum iron 20, transferrin sat 18%, ferritin 361, vitamin B12 453, folate 6.6. Start Fe supplementation. Transfusion not clearly indicated at this time, but consider maintaining higher H/H in light of multiple wounds. Hb 7.4 on 09/22 Will transfuse if Hb drops below 7.0 Will monitor Hb -8.1 on 09/25/17 CORONARY ARTERY DISEASE Continue aspirin and metoprolol. No acute issue HYPERTENSION Continue metoprolol. Remains stable DM TYPE 2 Well-controlled on dietary management. Hemoglobin A1c 6.3. Fasting blood sugar this morning = 181. Lantus / NovoLog per protocol. VTE PROPHYLAXIS Receiving IV heparin for acute bilateral DVT's present on admission. DISPOSITION To be determined. Anticipate need for skilled care. Case Management consulted. Internal Medicine follow-up with Dr. Bond. Vital Signs: Date Time Temp Pulse Resp B/P (MAP) Pulse Ox O2 Delivery O2 Flow Rate FiO2 09/25/17 14:54 37.1 65 20 140/70 (93) 97 Room Air 09/25/17 08:00 Room Air 09/25/17 07:20 36.5 67 20 149/78 (101) 97 Room Air 09/25/17 00:00 Room Air 09/24/17 23:42 37.2 76 19 126/65 (85) 96 Room Air Lab Results: Results Past 24 Hours Test 09/24/17 20:42 09/25/17 07:26 09/25/17 07:45 09/25/17 11:29 Range/Units Bedside Glucose 139 125 114 70-90 mg/dl White Blood Count 7.12 4.8-10.8 K/uL Red Blood Count 2.77 4.2-5.4 M/uL Hemoglobin 8.3 12.0-16.0 g/dL Hematocrit 26.3 37-47 % Mean Corpuscular Volume 94.9 80-100 fL Mean Corpuscular Hemoglobin 30.0 25-34 pg Mean Corpuscular Hemoglobin Concent 31.6 32-36 g/dl Platelet Count 299 130-400 K/uL Mean Platelet Volume 8.8 7.4-10.4 fL Neutrophils (%) (Auto) 61.9 % Lymphocytes (%) (Auto) 23.6 % Monocytes (%) (Auto) 9.7 % Eosinophils (%) (Auto) 2.7 % Basophils (%) (Auto) 0.3 % Neutrophils # (Auto) 4.41 1.4-6.5 K/uL Lymphocytes # (Auto) 1.68 1.2-3.4 K/uL Monocytes # (Auto) 0.69 0.11-0.59 K/uL Eosinophils # (Auto) 0.19 0-0.5 K/uL Basophils # (Auto) 0.02 0-0.2 K/uL RDW Standard Deviation 45.6 36.4-46.3 fL RDW Coefficient of Variation 13.2 11.5-14.5 % Immature Granulocyte % (Auto) 1.8 % Immature Granulocyte # (Auto) 0.13 0.00-0.02 K/uL Hypersegmented Polys 1+ Toxic Vacuolation 1+ Acanthocytes 1+ Schistocytes 1+ Prothrombin Time 17.1 9.0-12.0 SECONDS Prothromb Time International Ratio 1.6 0.9-1.1 Activated Partial Thromboplast Time 69.5 21.0-31.0 SECONDS Partial Thromboplastin Ratio 2.7 Test 09/25/17 16:24 Range/Units Bedside Glucose 122 70-90 mg/dl
[2017-09-25] MEDS: DAPTOmycin IV 225 MG in SYRINGE 0 ML IV SCH (18:37)
[2017-09-25 23:42] VITALS: BP 105/65; PULSE 74; TEMP 36.9; O2SAT 95
[2017-09-26] MEDS: D5W AND 1/2NSS + 20MEQ KCL 1,000 ML IV SCH (04:05)
[2017-09-26 06:30] LABS: INR 2.3 (0.9-1.1); PARTIAL THROMBOPLASTIN RATIO 3.6; PROTHROMBIN TIME (PATIENT) 25.4 SECONDS (9.0-12.0)
[2017-09-26] MEDS: INSULIN ASPART 100 UNITS/ML 3 ML PEN SC SCH ×4 (06:30→19:57)
[2017-09-26 06:47] LABS: CREATININE 0.75 mg/dl (0.60-1.20)
[2017-09-26 07:26] VITALS: BP 165/72; PULSE 72; TEMP 37.5; O2SAT 95
[2017-09-26] MEDS ORDERED: NURSING VERBAL MED ORDER ONE (07:30)
[2017-09-26] MEDS: COLLAGENASE OINT 30 GM TUBE EXT SCH (09:14)
[2017-09-26] MEDS: DOCUSATE SODIUM 100 MG/10 ML UDC PO SCH ×2 (09:14→19:57)
[2017-09-26] MEDS: BOOST VANILLA PUDDING CUP PO SCH ×3 (09:14→16:57)
[2017-09-26] MEDS: TIMOLOL MALEATE 0.25% OP SOLN 5 ML BTL OPB SCH (09:14)
[2017-09-26] MEDS: METOPROLOL SUCC 25MG EXT REL TAB PO SCH (09:15)
[2017-09-26] MEDS: FERROUS SULFATE 325 MG TAB PO SCH (13:00)
--- NOTE | 2017-09-26 13:29 | Progress Note ---
Internal Med Progress Note Date of Service: Sep 26, 2017. Provider Documentation: SUBJECTIVE: The patient was seen and examined Remains stable in Bed and is bedbound Denies any symptoms Eating less OBJECTIVE: Vital Signs-as noted below Exam: General-No distress at rest remains in flexed posture and minimally communicative Eyes-Normal ENT-Normal Neck-Supple Lungs-Decreased breath sound bilaterally Minimal bibasilar crackles Heart-Regular,no murmur Abdomen-Benign,no masses,bowel sound present Extremities-In flexed posture Trace edema bilaterally Has multiple Decubitus ulcers as in the photos Clinically not any better Neuro-AA Not much communicative Lab data as noted below. ASSESSMENT & PLAN: MULTIPLE DECUBITUS SKIN ULCERS (present on admission) Please see the Photo-sacrum,right Hip,Right Heel and other areas Wound Care Nursing consulted. Cultures growing Staphylococcus aureus, Streptococcus species, and gram- negative bacilli. ID consulted-appreciate input . Reposition/turn every 2 hours. Optimize nutritional support. Continue daptomycin and cefepime and wound care as per nursing Will need 7 to 10 days of IV antibiotics Debridement as per Wound care provider Continue current antibiotics for now : Day 8 now Will stop the antibiotic on Thursday and transfer back to Discussed in detailed with the SON and The -agreeable and aware that gradual deterioration is expected outcome DVT'S BILAT LOWER EXTREMITIES (present on admission) Venous duplex demonstrated extensive DVTs both lower extremities. Started on IV heparin. Continue IV heparin pending long-term plans. Consider transition to warfarin if stools heme negative-not yet received Hb not dropped Coumadin restarted-INR 1.6 today Therapeutic INR Decrease Coumadin to 2.5 mg from today ANEMIA-Chronic Hgb 9.8 --> --> 7.8.. Suspect that anemia is chronic/multifactorial with falling H/H due to hemodilution Serum iron 20, transferrin sat 18%, ferritin 361, vitamin B12 453, folate 6.6. Start Fe supplementation. Transfusion not clearly indicated at this time, but consider maintaining higher H/H in light of multiple wounds. Hb 7.4 on 09/22 Will transfuse if Hb drops below 7.0 Will monitor Hb -8.1 on 09/25/17 CORONARY ARTERY DISEASE Continue aspirin and metoprolol. No acute issue HYPERTENSION Continue metoprolol. Remains stable DM TYPE 2 Well-controlled on dietary management. Hemoglobin A1c 6.3. Fasting blood sugar this morning = 181. Lantus / NovoLog per protocol. VTE PROPHYLAXIS Receiving IV heparin for acute bilateral DVT's present on admission. DISPOSITION To be determined. Anticipate need for skilled care. Case Management consulted. Internal Medicine follow-up with Dr. Bond. Discussed with the Son and in detailed Vital Signs: Date Time Temp Pulse Resp B/P (MAP) Pulse Ox O2 Delivery O2 Flow Rate FiO2 09/26/17 08:00 Room Air 09/26/17 07:26 37.5 72 18 165/72 (103) 95 Room Air 09/26/17 00:05 Room Air 09/25/17 23:42 36.9 74 18 105/65 (78) 95 Room Air 09/25/17 20:05 Room Air 09/25/17 14:54 37.1 65 20 140/70 (93) 97 Room Air Lab Results: Results Past 24 Hours Test 09/25/17 16:24 09/25/17 20:27 09/26/17 05:55 09/26/17 07:40 Range/Units Bedside Glucose 122 168 130 70-90 mg/dl Prothrombin Time 25.4 9.0-12.0 SECONDS Prothromb Time International Ratio 2.3 0.9-1.1 Activated Partial Thromboplast Time 94.8 21.0-31.0 SECONDS Partial Thromboplastin Ratio 3.6 Creatinine 0.75 0.60-1.20 mg/dl Est Creatinine Clear Calc Drug Dose 46.5 ml/min Estimated GFR () 86.6 Estimated GFR (Non- 74.8 Test 09/26/17 11:26 Range/Units Bedside Glucose 159 70-90 mg/dl
[2017-09-26 15:12] VITALS: BP 135/70; PULSE 63; TEMP 37.5; O2SAT 96
[2017-09-26] MEDS: CEFEPIME IV 2,000 MG in SYRINGE 7.5 ML IV SCH (16:57)
[2017-09-26] MEDS: DAPTOmycin IV 225 MG in SYRINGE 0 ML IV SCH (16:57)
[2017-09-26] MEDS: WARFARIN SOD 2.5 MG TAB PO SCH (16:57)
[2017-09-26 21:55] VITALS: BP 103/57; PULSE 56; TEMP 36.5; O2SAT 94
[2017-09-27] MEDS: D5W AND 1/2NSS + 20MEQ KCL 1,000 ML IV SCH ×2 (00:34→19:44)
[2017-09-27] MEDS: INSULIN ASPART 100 UNITS/ML 3 ML PEN SC SCH ×4 (06:30→19:52)
[2017-09-27 07:24] VITALS: BP 159/81; PULSE 66; TEMP 37.8; O2SAT 95
[2017-09-27 08:18] LABS: BASO % 0.1 %; BASO ABS # 0.01 K/uL (0-0.2); EOS % 1.8 %; HEMATOCRIT 26.5 % (37-47); IG% 1.4 %; LYMPH % 20.5 %; LYMPH ABS # 1.73 K/uL (1.2-3.4); MEAN CORPUSCULAR HEMOGLOBIN 30.1 pg (25-34); MEAN CORPUSCULAR HGB CONC 31.3 g/dl (32-36); MEAN PLATELET VOLUME 8.8 fL (7.4-10.4); MONO % 8.5 %; NEUT % 67.7 %; PLATELET COUNT 317 K/uL (130-400); RED BLOOD COUNT 2.76 M/uL (4.2-5.4); WHITE BLOOD COUNT 8.44 K/uL (4.8-10.8)
[2017-09-27] MEDS: COLLAGENASE OINT 30 GM TUBE EXT SCH (08:24)
[2017-09-27] MEDS: TIMOLOL MALEATE 0.25% OP SOLN 5 ML BTL OPB SCH (08:24)
[2017-09-27] MEDS: ASPIRIN 81 MG ECTAB PO SCH (08:26)
[2017-09-27] MEDS: DOCUSATE SODIUM 100 MG/10 ML UDC PO SCH ×2 (08:26→19:44)
[2017-09-27 08:27] LABS: PARTIAL THROMBOPLASTIN RATIO 1.5; PROTHROMBIN TIME (PATIENT) 22.1 SECONDS (9.0-12.0)
[2017-09-27] MEDS: FERROUS SULFATE 325 MG TAB PO SCH (08:27)
[2017-09-27] MEDS: METOPROLOL SUCC 25MG EXT REL TAB PO SCH (08:27)
[2017-09-27 08:53] LABS: ACANTHOCYTES 1+; COMPLETE YES
[2017-09-27 09:00] LABS: CREATININE 0.88 mg/dl (0.60-1.20)
[2017-09-27] MEDS: BOOST VANILLA PUDDING CUP PO SCH ×3 (12:00→17:46)
--- NOTE | 2017-09-27 13:24 | Progress Note ---
Internal Med Progress Note Date of Service: Sep 27, 2017. Provider Documentation: SUBJECTIVE: The patient was seen and examined Remains stable in Bed and is bedbound Eating less Brightest day for me with her-talked and denied any symptoms OBJECTIVE: Vital Signs-as noted below Exam: General-No distress at rest remains in flexed posture and minimally communicative Eyes-Normal ENT-Normal Neck-Supple Lungs-Decreased breath sound bilaterally Minimal bibasilar crackles Heart-Regular,no murmur Abdomen-Benign,no masses,bowel sound present Extremities-In flexed posture Trace edema bilaterally Has multiple Decubitus ulcers as in the photos Clinically not any better Neuro-AA Not much communicative Lab data as noted below. ASSESSMENT & PLAN: MULTIPLE DECUBITUS SKIN ULCERS (present on admission) Please see the Photo-sacrum,right Hip,Right Heel and other areas Wound Care Nursing consulted. Cultures growing Staphylococcus aureus, Streptococcus species, and gram- negative bacilli. ID consulted-appreciate input . Reposition/turn every 2 hours. Optimize nutritional support. Continue daptomycin and cefepime and wound care as per nursing Will need 7 to 10 days of IV antibiotics Debridement as per Wound care provider Continue current antibiotics for now : Day 9 now Will stop the antibiotic on Thursday and transfer back to Discussed in detailed with the SON and The -agreeable and aware that gradual deterioration is expected outcome Remains stable DVT'S BILAT LOWER EXTREMITIES (present on admission) Venous duplex demonstrated extensive DVTs both lower extremities. Started on IV heparin.,Continue IV heparin pending long-term plans-Coumadin started. Consider transition to warfarin if stools heme negative-not yet received Hb not dropped Coumadin restarted-INR 1.6 today Therapeutic INR Decrease Coumadin to 2.5 mg from today INR-2.0 09/27 ANEMIA-Chronic Hgb 9.8 --> --> 7.8.. Suspect that anemia is chronic/multifactorial with falling H/H due to hemodilution Serum iron 20, transferrin sat 18%, ferritin 361, vitamin B12 453, folate 6.6. Start Fe supplementation. Transfusion not clearly indicated at this time, but consider maintaining higher H/H in light of multiple wounds. Hb 7.4 on 09/22 Will transfuse if Hb drops below 7.0 Will monitor Hb -8.1 on 09/25/17 Monitor CBC CORONARY ARTERY DISEASE Continue aspirin and metoprolol. No acute issue HYPERTENSION Continue metoprolol. Remains stable DM TYPE 2 Well-controlled on dietary management. Hemoglobin A1c 6.3. Fasting blood sugar this morning = 181. Lantus / NovoLog per protocol. VTE PROPHYLAXIS Receiving IV heparin for acute bilateral DVT's present on admission. DISPOSITION To be determined. Anticipate need for skilled care. Case Management consulted. Internal Medicine follow-up with Dr. Bond. Discussed with the Son and in detailed -happy with the care Vital Signs: Date Time Temp Pulse Resp B/P (MAP) Pulse Ox O2 Delivery O2 Flow Rate FiO2 09/27/17 08:00 Room Air 09/27/17 07:24 37.8 66 18 159/81 (107) 95 Room Air 09/27/17 00:05 Room Air 09/26/17 21:55 36.5 56 16 103/57 (72) 94 Room Air 09/26/17 20:05 Room Air 09/26/17 15:12 37.5 63 18 135/70 (91) 96 Room Air Lab Results: Results Past 24 Hours Test 09/26/17 16:41 09/26/17 19:52 09/27/17 07:40 09/27/17 07:58 Range/Units Bedside Glucose 108 140 114 70-90 mg/dl White Blood Count 8.44 4.8-10.8 K/uL Red Blood Count 2.76 4.2-5.4 M/uL Hemoglobin 8.3 12.0-16.0 g/dL Hematocrit 26.5 37-47 % Mean Corpuscular Volume 96.0 80-100 fL Mean Corpuscular Hemoglobin 30.1 25-34 pg Mean Corpuscular Hemoglobin Concent 31.3 32-36 g/dl Platelet Count 317 130-400 K/uL Mean Platelet Volume 8.8 7.4-10.4 fL Neutrophils (%) (Auto) 67.7 % Lymphocytes (%) (Auto) 20.5 % Monocytes (%) (Auto) 8.5 % Eosinophils (%) (Auto) 1.8 % Basophils (%) (Auto) 0.1 % Neutrophils # (Auto) 5.71 1.4-6.5 K/uL Lymphocytes # (Auto) 1.73 1.2-3.4 K/uL Monocytes # (Auto) 0.72 0.11-0.59 K/uL Eosinophils # (Auto) 0.15 0-0.5 K/uL Basophils # (Auto) 0.01 0-0.2 K/uL RDW Standard Deviation 47.6 36.4-46.3 fL RDW Coefficient of Variation 13.8 11.5-14.5 % Immature Granulocyte % (Auto) 1.4 % Immature Granulocyte # (Auto) 0.12 0.00-0.02 K/uL Acanthocytes 1+ Prothrombin Time 22.1 9.0-12.0 SECONDS Prothromb Time International Ratio 2.0 0.9-1.1 Activated Partial Thromboplast Time 39.7 21.0-31.0 SECONDS Partial Thromboplastin Ratio 1.5 Creatinine 0.88 0.60-1.20 mg/dl Est Creatinine Clear Calc Drug Dose 39.7 ml/min Estimated GFR () 71.4 Estimated GFR (Non- 61.6 Test 09/27/17 12:03 Range/Units Bedside Glucose 130 70-90 mg/dl
[2017-09-27 15:49] VITALS: BP 109/74; PULSE 68; TEMP 36.7; O2SAT 99
[2017-09-27] MEDS: WARFARIN SOD 2.5 MG TAB PO SCH (17:45)
[2017-09-27] MEDS: DAPTOmycin IV 225 MG in SYRINGE 0 ML IV SCH (17:47)
[2017-09-27] MEDS: CEFEPIME IV 2,000 MG in SYRINGE 7.5 ML IV SCH (17:47)
[2017-09-27] MEDS ORDERED: NURSING VERBAL MED ORDER ONE ×2 (18:45→19:15)
[2017-09-27] MEDS ORDERED: SODIUM CHLORIDE 0.9% 500ML 500 ML IV ONE (19:00)
[2017-09-28 01:18] VITALS: BP 107/58; PULSE 57; TEMP 36.7; O2SAT 96
[2017-09-28] MEDS: INSULIN ASPART 100 UNITS/ML 3 ML PEN SC SCH ×4 (06:30→21:00)
[2017-09-28 07:17] VITALS: BP 147/68; PULSE 63; TEMP 36.6; O2SAT 97
[2017-09-28] MEDS: COLLAGENASE OINT 30 GM TUBE EXT SCH (08:00)
[2017-09-28] MEDS: DOCUSATE SODIUM 100 MG/10 ML UDC PO SCH ×2 (08:00→21:23)
[2017-09-28] MEDS: ASPIRIN 81 MG ECTAB PO SCH (08:00)
[2017-09-28] MEDS: TIMOLOL MALEATE 0.25% OP SOLN 5 ML BTL OPB SCH (08:00)
[2017-09-28] MEDS: BOOST VANILLA PUDDING CUP PO SCH ×3 (08:00→17:00)
[2017-09-28] MEDS: METOPROLOL SUCC 25MG EXT REL TAB PO SCH (08:00)
[2017-09-28 08:46] LABS: PARTIAL THROMBOPLASTIN RATIO 1.6
[2017-09-28 08:56] LABS: CREATININE 0.98 mg/dl (0.60-1.20)
[2017-09-28] MEDS: FERROUS SULFATE 325 MG TAB PO SCH (12:46)
[2017-09-28] MEDS ORDERED: DOXYCYCLINE HYCLATE 100 MG CAP PO ONE (13:00)
[2017-09-28] MEDS: D5W AND 1/2NSS + 20MEQ KCL 1,000 ML IV SCH (14:07)
[2017-09-28 16:00] VITALS: O2SAT 97
[2017-09-28 16:05] VITALS: BP 107/64; PULSE 66; TEMP 36.9; O2SAT 98
--- NOTE | 2017-09-28 18:20 | Progress Note ---
Internal Med Progress Note Date of Service: Sep 28, 2017. Provider Documentation: SUBJECTIVE: The patient was seen and examined Remains stable in Bed and is bedbound Eating reasonably well Brightest day for me with her-talked and denied any symptoms Remains stable OBJECTIVE: Vital Signs-as noted below Exam: General-No distress at rest Remains in flexed posture and minimally communicative Eyes-Normal ENT-Normal Neck-Supple Lungs-Decreased breath sound bilaterally Minimal bibasilar crackles Heart-Regular,no murmur Abdomen-Benign,no masses,bowel sound present Extremities-In flexed posture Trace edema bilaterally Has multiple Decubitus ulcers as in the photos Clinically not any better Neuro-AA Not much communicative Lab data as noted below. ASSESSMENT & PLAN: MULTIPLE DECUBITUS SKIN ULCERS (present on admission) Please see the Photo-sacrum,right Hip,Right Heel and other areas Wound Care Nursing consulted. Cultures growing Staphylococcus aureus, Streptococcus species, and gram- negative bacilli. ID consulted-appreciate input . Reposition/turn every 2 hours. Optimize nutritional support. Continue daptomycin and cefepime and wound care as per nursing Will need 7 to 10 days of IV antibiotics-finished .Continue with Oral Doxycycline Debridement as per Wound care provider Continue current antibiotics for now : Day 10 now Will stop the antibiotic on Thursday and transfer back to Discussed in detailed with the SON and The -agreeable and aware that gradual deterioration is expected outcome Remains stable Discussed with Dr Danielle -will give Doxycycline 100 mg BID for 2 weeks Likely to be discharged tomorrow DVT'S BILAT LOWER EXTREMITIES (present on admission) Venous duplex demonstrated extensive DVTs both lower extremities. Started on IV heparin.,Continue IV heparin pending long-term plans-Coumadin started. Consider transition to warfarin if stools heme negative-not yet received Hb not dropped Therapeutic INR Decrease Coumadin to 2.5 mg from today INR-2.0 09/27 ANEMIA-Chronic Hgb 9.8 --> --> 7.8.. Suspect that anemia is chronic/multifactorial with falling H/H due to hemodilution Serum iron 20, transferrin sat 18%, ferritin 361, vitamin B12 453, folate 6.6. Start Fe supplementation. Transfusion not clearly indicated at this time, but consider maintaining higher H/H in light of multiple wounds. Hb 7.4 on 09/22 Will transfuse if Hb drops below 7.0 Will monitor Hb -8.1 on 09/25/17 Monitor CBC CORONARY ARTERY DISEASE Continue aspirin and metoprolol. No acute issue HYPERTENSION Continue metoprolol. Remains stable DM TYPE 2 Well-controlled on dietary management. Hemoglobin A1c 6.3. Fasting blood sugar this morning = 181. Lantus / NovoLog per protocol. Blood sugar is maintained VTE PROPHYLAXIS Receiving IV heparin for acute bilateral DVT's present on admission. DISPOSITION To be determined. Anticipate need for skilled care. Case Management consulted. Internal Medicine follow-up with Dr. Bond. Discussed with the Son and in detailed -happy with the care Will discharge to tomorrow Vital Signs: Date Time Temp Pulse Resp B/P (MAP) Pulse Ox O2 Delivery O2 Flow Rate FiO2 09/28/17 16:05 36.9 66 18 107/64 (78) 98 Room Air 09/28/17 16:00 97 Room Air 09/28/17 08:00 Room Air 09/28/17 07:17 36.6 63 20 147/68 (94) 97 09/28/17 01:18 36.7 57 16 107/58 (74) 96 Room Air 09/28/17 00:05 Room Air 09/27/17 20:05 Room Air Lab Results: Results Past 24 Hours Test 09/27/17 19:48 09/28/17 07:51 09/28/17 08:02 09/28/17 11:35 Range/Units Bedside Glucose 188 128 149 70-90 mg/dl Activated Partial Thromboplast Time 40.9 21.0-31.0 SECONDS Partial Thromboplastin Ratio 1.6 Creatinine 0.98 0.60-1.20 mg/dl Est Creatinine Clear Calc Drug Dose 35.6 ml/min Estimated GFR () 62.7 Estimated GFR (Non- 54.1 Test 09/28/17 16:41 Range/Units Bedside Glucose 126 70-90 mg/dl
[2017-09-28] MEDS: WARFARIN SOD 2.5 MG TAB PO SCH (19:10)
--- NOTE | 2017-09-28 20:54 | Infectious Disease Progress Nt ---
Progress Note Date of Service Sep 28, 2017. Subjective Pt evaluation today including: conversation w/ patient, physical exam, chart review, lab review, review of studies, conversation w/ career development consultant, review of inpatient medication list Patient appears comfortable in offers no specific complaints. Remains afebrile. Wounds are improving. All Other Systems: Reviewed and Negative Medications Current Inpatient Medications Medications (Trade) Dose Ordered Sig/Matthew Route Start Time Stop Time Status Last Admin Dose Admin Acetaminophen (Tylenol Tab) 650 mg Q4H PRN PO 09/18/17 15:45 10/18/17 15:44 09/24/17 22:43 650 MG Ondansetron HCl (Zofran Inj) 4 mg Q6H PRN IV 09/18/17 15:45 10/18/17 15:44 Polyethylene (Miralax Powder Packet) 17 gm DAILY PRN PO 09/18/17 17:45 10/18/17 17:44 09/20/17 17:17 17 GM Aspirin (Ecotrin Tab) 81 mg DAILY PO 09/19/17 08:00 10/19/17 07:59 09/28/17 08:00 81 MG Metoprolol Succinate (Toprol Xl Tab) 25 mg DAILY PO 09/19/17 08:00 10/19/17 07:59 09/28/17 08:00 25 MG Timolol Maleate (Timoptic 0.25% Oph Soln) 1 drops DAILY OPB 09/19/17 08:00 10/19/17 07:59 09/28/17 08:00 1 DROPS Potassium Chloride/Dextrose/ Sod Cl 1,000 ml @ 50 mls/hr Q20H IV 09/19/17 20:15 10/19/17 20:14 09/28/17 14:07 50 MLS/HR Enteral Nutritional Formula (Boost Pudding) 1 cup TIDM PO 09/20/17 17:00 10/20/17 16:59 09/28/17 17:00 1 CUP Insulin Aspart (novoLOG ASPART) SLIDING SCALE G... ACHS SC 09/21/17 06:30 10/21/17 06:29 09/27/17 19:52 1 UNITS Glucose (Glucose 40% Gel) 15-30 GRAMS 15 GRAMS... UD PRN PO 09/20/17 23:30 10/20/17 23:29 Glucose (Glucose Chew Tab) 4-8 Tablets 4 Tabl... UD PRN PO 09/20/17 23:30 10/20/17 23:29 Dextrose (Dextrose 50% 50ML Syringe) 25-50ML OF 50% DW IV FOR... UD PRN IV 09/20/17 23:30 10/20/17 23:29 Glucagon (Glucagon Inj) 1 mg UD PRN SQ 09/20/17 23:30 10/20/17 23:29 Collagenase (Santyl Oint) 1 appln DAILY EXT 09/21/17 11:15 10/21/17 11:14 09/28/17 08:00 1 APPLN Ferrous Sulfate (Feosol Tab) 325 mg DAILY@1300 PO 09/22/17 13:00 10/22/17 12:59 09/28/17 12:46 325 MG Bisacodyl (Dulcolax Supp) 10 mg DAILY PRN NV 09/21/17 20:45 10/21/17 20:44 09/25/17 11:50 10 MG Docusate Sodium (coLACE SYRUP) 100 mg BID PO 09/22/17 08:45 10/22/17 08:44 09/28/17 08:00 100 MG Warfarin Sodium (Coumadin Tab) 2.5 mg DAILY@16 PO 09/26/17 16:00 10/23/17 15:59 09/28/17 19:10 2.5 MG Doxycycline Hyclate (Vibramycin Cap) 100 mg BID PO 09/28/17 20:00 10/08/17 19:59 Objective Vital Signs Date Time Temp Pulse Resp B/P (MAP) Pulse Ox O2 Delivery O2 Flow Rate FiO2 09/28/17 16:05 36.9 66 18 107/64 (78) 98 Room Air 09/28/17 16:00 97 Room Air 09/28/17 08:00 Room Air 09/28/17 07:17 36.6 63 20 147/68 (94) 97 09/28/17 01:18 36.7 57 16 107/58 (74) 96 Room Air 09/28/17 00:05 Room Air Physical Exam General Appearance: WD/WN, no apparent distress Eyes: normal inspection, sclerae normal ENT: normal ENT inspection, pharynx normal Neck: supple, no adenopathy, trachea midline Respiratory/Chest: chest non-tender, lungs clear, normal breath sounds, no respiratory distress Cardiovascular: regular rate, rhythm, no gallop, no murmur Abdomen: normal bowel sounds, non tender, soft, no organomegaly Extremities: non-tender, no calf tenderness Neurologic/Psychiatric: alert, + disoriented Skin: normal color, no rash Lymphatic: no adenopathy Laboratory Results Last 24 Hours Test 09/28/17 07:51 09/28/17 08:02 09/28/17 11:35 09/28/17 16:41 Bedside Glucose 128 mg/dl 149 mg/dl 126 mg/dl Activated Partial Thromboplast Time 40.9 SECONDS Partial Thromboplastin Ratio 1.6 Creatinine 0.98 mg/dl Est Creatinine Clear Calc Drug Dose 35.6 ml/min Estimated GFR () 62.7 Estimated GFR (Non- 54.1 Test 09/28/17 20:13 Bedside Glucose 115 mg/dl Assessment and Plan infected left heel ulceration in patient with diabetes mellitus, with cultures most consistently growing Staph aureus, methicillin-resistant. I think the patient has received enough IV antibiotics, and would continue oral doxycycline to continue treatment for MRSA infected wounds to improve wound healing. Discussed with Dr. Torres.
[2017-09-28] MEDS: DOXYCYCLINE HYCLATE 100 MG CAP PO SCH (21:22)
[2017-09-29 00:05] VITALS: BP 110/66; PULSE 62; TEMP 36.8; O2SAT 97; O2SAT 98
[2017-09-29 08:08] VITALS: BP 106/63; PULSE 64; TEMP 36.2; O2SAT 100
[2017-09-29] MEDS: INSULIN ASPART 100 UNITS/ML 3 ML PEN SC SCH ×2 (08:46→13:00)
[2017-09-29] MEDS: TIMOLOL MALEATE 0.25% OP SOLN 5 ML BTL OPB SCH (08:47)
[2017-09-29] MEDS: COLLAGENASE OINT 30 GM TUBE EXT SCH (08:47)
[2017-09-29] MEDS: METOPROLOL SUCC 25MG EXT REL TAB PO SCH (08:48)
[2017-09-29] MEDS: DOXYCYCLINE HYCLATE 100 MG CAP PO SCH (08:48)
[2017-09-29] MEDS: BOOST VANILLA PUDDING CUP PO SCH ×2 (08:49→13:00)
[2017-09-29] MEDS: ASPIRIN 81 MG ECTAB PO SCH (08:53)
[2017-09-29] MEDS: DOCUSATE SODIUM 100 MG/10 ML UDC PO SCH (08:53)
--- NOTE | 2017-09-29 09:27 | Progress Note ---
Internal Med Progress Note Date of Service: Sep 29, 2017. Provider Documentation: SUBJECTIVE: The patient was seen and examined Remains stable in Bed and is bedbound Eating reasonably well Remains stable Talks at times OBJECTIVE: Vital Signs-as noted below Exam: General-No distress at rest Remains in flexed posture and minimally communicative Eyes-Normal ENT-Normal Neck-Supple Lungs-Decreased breath sound bilaterally Minimal bibasilar crackles Heart-Regular,no murmur Abdomen-Benign,no masses,bowel sound present Extremities-In flexed posture Trace edema bilaterally Has multiple Decubitus ulcers as in the photos Involving Right Hip.Sacrum,Left heel and Left Elbow-no indication for debridement Clinically better-continue current dressing as advised Neuro-AA Not much communicative Lab data as noted below. ASSESSMENT & PLAN: MULTIPLE DECUBITUS SKIN ULCERS (present on admission) Please see the Photo-sacrum,right Hip,Right Heel and other areas Wound Care Nursing consulted. Cultures growing Staphylococcus aureus, Streptococcus species, and gram- negative bacilli. ID consulted-appreciate input . Reposition/turn every 2 hours. Optimize nutritional support. Continue daptomycin and cefepime and wound care as per nursing Will need 7 to 10 days of IV antibiotics-finished .Continue with Oral Doxycycline Debridement as per Wound care provider Continue current antibiotics for now : Day 10 now Will stop the antibiotic on Thursday and transfer back to Discussed in detailed with the SON and The -agreeable and aware that gradual deterioration is expected outcome Remains stable Discussed with Dr Danielle -will give Doxycycline 100 mg BID for 2 weeks Likely to be discharged tomorrow DVT'S BILAT LOWER EXTREMITIES (present on admission) Venous duplex demonstrated extensive DVTs both lower extremities. Started on IV heparin.,Continue IV heparin pending long-term plans-Coumadin started. Consider transition to warfarin if stools heme negative-not yet received Hb not dropped Therapeutic INR Decrease Coumadin to 2.5 mg from today INR-2.0 09/27 ANEMIA-Chronic Hgb 9.8 --> --> 7.8.. Suspect that anemia is chronic/multifactorial with falling H/H due to hemodilution Serum iron 20, transferrin sat 18%, ferritin 361, vitamin B12 453, folate 6.6. Start Fe supplementation. Transfusion not clearly indicated at this time, but consider maintaining higher H/H in light of multiple wounds. Hb 7.4 on 09/22 Will transfuse if Hb drops below 7.0 Will monitor Hb -8.1 on 09/25/17 Monitor CBC CORONARY ARTERY DISEASE Continue aspirin and metoprolol. No acute issue HYPERTENSION Continue metoprolol. Remains stable DM TYPE 2 Well-controlled on dietary management. Hemoglobin A1c 6.3. Fasting blood sugar this morning = 181. Lantus / NovoLog per protocol. Blood sugar is maintained VTE PROPHYLAXIS Receiving IV heparin for acute bilateral DVT's present on admission. DISPOSITION To be determined. Anticipate need for skilled care. Case Management consulted. Internal Medicine follow-up with Dr. Bond. Discussed with the Son and in detailed -happy with the care Discharge to today Vital Signs: Date Time Temp Pulse Resp B/P (MAP) Pulse Ox O2 Delivery O2 Flow Rate FiO2 09/29/17 08:08 36.2 64 24 106/63 (77) 100 Room Air 09/29/17 00:05 36.8 62 16 110/66 (81) 98 Room Air 09/29/17 00:05 97 Room Air 09/28/17 16:05 36.9 66 18 107/64 (78) 98 Room Air 09/28/17 16:00 97 Room Air Lab Results: Results Past 24 Hours Test 09/28/17 11:35 09/28/17 16:41 09/28/17 20:13 09/29/17 04:44 Range/Units Bedside Glucose 149 126 115 70-90 mg/dl Test 09/29/17 07:46 Range/Units Bedside Glucose 121 70-90 mg/dl
[2017-09-29] MEDS ORDERED: FRRS300 PO (09:54)
[2017-09-29] MEDS ORDERED: DXY100 PO (09:54)
[2017-09-29] MEDS ORDERED: CMD25 PO (09:54)
--- NOTE | 2017-09-29 10:02 | Discharge Instructions ---
Discharge Instructions Date of Service Sep 29, 2017. Admission Reason for Admission: Decubitus Ulcer, Ulcer Of Left Heel, Wound Discharge Discharge Diagnosis / Problem: Multoiple Decubitus ulcers with infection, Bilateral DVTs,Chronic Anemia,DM Discharge Goals Goal(s): Prevent Disease Progression Activity Recommendations Activity Level: Assistance Required Therapies: Physical Therapy, Occupational Therapy . Additional Information Patient informed of condition: Yes (Does not understand) Advance Directives: No DNR: Yes Level of Care: Skilled Communicable Disease: No Prognosis: Stable Oxygen at (LPM): 2 liters /min via NC as needed Nance Catheter: Yes (Pl change as neede.Likely to stay for a while due to Decubetus) Instructions / Follow-Up Instructions / Follow-Up As Per Carrie Moore provider Current Hospital Diet Patient's current hospital diet: Regular Diet Discharge Diet Recommended Diet: Regular Diet (Needs assistance in feeding) Pending Studies Studies pending at discharge: no Laboratory Results Hemoglobin A1c Test 09/19/17 07:11 Range/Units Estimated Average Glucose 134 mg/dl Hemoglobin A1c 6.3 H 4.5-5.6 % Lipid Panel Test 09/19/17 07:11 Range/Units Triglycerides Level 74 0-150 mg/dl Cholesterol Level 114 0-200 mg/dl HDL Cholesterol 29 mg/dl Cholesterol/HDL Ratio 3.9 LDL Cholesterol, Calculated 70 mg/dl Medical Emergencies . Who to Call and When: Medical Emergencies: If at any time you feel your situation is an emergency, please call 911 immediately. . Non-Emergent Contact Non-Emergency issues call your: Primary Care Provider . Past History Medical & Surgical History: (1) Diabetes mellitus, type II (2) Decubitus ulcer (3) Wound infection (4) Ulcer of left heel (5) Coronary artery disease (6) Status post hysterectomy (7) Status post total knee replacement . "Provider Documentation" section prepared by Ko Torres. . Core Measure Problem Core Measures: VTE VTE Core Measures VTE Diagnosis: (1) DVT (deep venous thrombosis) Date of VTE Diagnosis: Sep 18, 2017 Time of VTE Diagnosis: 15:31 Reason no anticoag overlap I/P: Treatment provided - N/A Reason no anticoag overlap @DC: Treatment not indicated (Anemia.)
[2017-09-29] MEDS ORDERED: LCTX PO (10:15)
--- NOTE | 2017-09-29 11:06 | Discharge Summary ---
Discharge Summary Date of Service Sep 29, 2017. Discharge Summary Admission Date: Sep 18, 2017 at 15:35 Discharge Date: Sep 29, 2017 Discharge Disposition: long-term facility Principal Diagnosis: Multiple Decubitus ulcers with infection,Bilateral DVTs,Chronic Anemia,DM Secondary Diagnoses/Problems: Please see H&P and Hospital progress note Consultations: Wound Care and ID Medication Reconciliation New Medications: Lactobacillus Acidophilus (Lactinex) Tab 2 TAB PO BID, #60 TAB Doxycycline Hyclate (Doxycycline Hyclate) 100 Mg Cap 100 MG PO BID for 14 Days, #28 CAP Ferrous Sulfate (Ferrous Sulfate) 325 Mg Tab 325 MG PO DAILY@1300 for 30 Days, #60 TAB Warfarin Sod (Coumadin) 2.5 Mg Tab 2.5 MG PO DAILY@16 for 30 Days, #30 TAB Adjust dose of Coumadin to leep INR between 2 to 3 Continued Medications: Aspirin (Aspirin Ec) 81 Mg Tab 81 MG PO DAILY Atorvastatin (Atorvastatin Calcium) 40 Mg Tab 40 MG PO DAILY Bisacodyl (Dulcolax) 5 Mg Tab 1 TAB PO UD for Constipation for 1 Day, #2 TAB Cholecalciferol (Vitamin D) 400 Unit Tab 1 TAB PO DAILY Losartan Potassium (Cozaar) 100 Mg Tab 50 MG PO DAILY Metoprolol Succinate (Metoprolol Succinate ER) 25 Mg Tabcr 25 MG PO DAILY Sennosides-Docusate Sodium (Senna Plus) 1 Tab Tab 2 TABS PO DAILY Timolol Maleate (Ophth) (Timoptic 0.25% Oph) 0.25 % Janine 1 DROP OPB DAILY, BTL Admission Information HPI (per Admitting provider): Pt is 82 y/o F with hx dementia, HTN, CAD, DM II presented to ER with family with c/o worsening ulcers to sacrum, L heel, L elbow. Pt with hx dementia and history obtained from pt's and son. Reports several weeks ago with R decubitus ulcer and ulcer to L heel, Left elbow and was seen at PCP's office and chose to try to self treat at home without wound evaluation/ treatment. Reports left elbow ulceration seemed to be healing. States noticing worsening R decubitus ulcerations and L heel with large blister and few days ago ruptured with transfer of pt with bloody clear drainage. Noticed some surrounding erythema to L heel wound and noticed edema to L LE. Reports pt with slow decline over past several years and over past 6 months has not been ambulatory. Family reports pt does not follow commands at baseline, talks/ mumbles randomly to self but does not communicate otherwise and does not seem to respond to painful stimuli. Previously was able to stand to help transfer from bed to chair or wheelchair but over past 6 months has not been able to do so. Family reports repositions her throughout the day and pt in recliner or wheelchair. States able to get pt up every 4 hrs during day to bedside commode. Recently have been having aids come to house. and son do not report any noticed choking on foods/liquids/pills. Reports often spits pills out. Past week noticed slight intermittent dry cough. Pt with hx chronic intermittent clear rhinorrhea and have not noticed any worsening. States pt's appetite varies , and some days will eat and other days will not. Pt eats soft solid foods and supplements with ensure. Drinks approx 12 ounces water a day and has some juice. Last BM 2-3 days ago. Family hasn't noticed fever, rigors, hematuria, melena, hematochezia, vomiting, diarrhea, noted wheezing or appearance of SOB. reports has been considering placement of pt in nursing facility and does not want in [facility], but has thought about [facility] in [place]. In ER pt's vitals stable. pt given rocephin. Past Medical/Surgical History Medical Problems: (1) Coronary artery disease Status: Chronic (2) Dementia Status: Chronic (3) Diabetes mellitus, type II Status: Chronic (4) Glaucoma Status: Chronic (5) Hypertension Status: Chronic Surgical Problems: (1) Status post hysterectomy Status: Chronic (2) Status post total knee replacement Status: Chronic Family History FH: cancer FATHER (hx larnyx [place], age 91) MOTHER (hx breast [place], age 81) Social History Smoking Status: Former Smoker Alcohol Use: none Drug Use: none Marital Status: Housing status: lives with significant other Occupational Status: retired Immunizations History of Influenza Vaccine: Yes History of Pneumococcal: Yes Pneumococcal Date: Sep 07, 2008 Allergies Coded Allergies: No Known Allergies (Unverified , 07/29/14) Home Medications Scheduled Aspirin (Aspirin Ec), 81 MG PO DAILY Atorvastatin (Atorvastatin Calcium), 40 MG PO DAILY Bisacodyl (Dulcolax), 1 TAB PO UD Cholecalciferol (Vitamin D), 1 TAB PO DAILY Losartan Potassium (Cozaar), 50 MG PO DAILY Metoprolol Succinate (Metoprolol Succinate ER), 25 MG PO DAILY Sennosides-Docusate Sodium (Senna Plus), 2 TABS PO DAILY Timolol Maleate (Ophth) (Timoptic 0.25% Oph), 1 DROP OPB DAILY Review of Systems unable to obtain further ROS secondary to dementia of pt. Physical Ex - H&P Physical Exam Vital Signs Date Time Temp Pulse Resp B/P (MAP) Pulse Ox O2 Delivery O2 Flow Rate FiO2 09/18/17 17:04 Room Air 09/18/17 16:53 36.7 76 18 95/89 (91) 100 Room Air 09/18/17 15:55 70 16 156/83 100 09/18/17 15:26 67 09/18/17 14:23 36.5 70 18 150/101 100 Room Air 09/18/17 13:04 64 18 141/65 100 Room Air 09/18/17 12:07 61 16 124/62 98 Room Air 09/18/17 11:35 100 Room Air 09/18/17 11:14 37.0 66 16 126/57 98 Room Air General Appearance: no apparent distress, + pertinent finding (frail appearing) Head: normocephalic, atraumatic Eyes: normal inspection, PERRL, sclerae normal, + pertinent finding (unable to test EOM's as pt does not follow commands) ENT: pharynx normal, + pertinent finding (mucous membranes moist) Neck: supple, no JVD, trachea midline Respiratory/Chest: lungs clear, normal breath sounds, no respiratory distress, no accessory muscle use, + pertinent finding (do not appreciate any wheezing/ rhonchi/rales however difficult to fully assess as pt does not take deep breaths ) Cardiovascular: regular rate, rhythm, no murmur, + pertinent finding ( peripheral pulses intact) Abdomen/GI: normal bowel sounds, soft, + pertinent finding (no noted wincing or guarding with palpation ) Extremities/Musculoskelatal: normal capillary refill, + pertinent finding (no noted signs of distress with palpation. LLE with edema without erythema. Left medial heel with approx 6cm ulceration with eschar with surrounding erythema, no discharge, no red streaking. Left elbow with approx 3cm ulceration with eschar without significant surrounding erythema. Right sacrum with approx 6cm ulcer with eschar & 7cm ulcer with ecshar and adjoining 3mc ulcer with eschar. Pt holding bilateral arms tightly retracted to body.) Neurologic/Psych: alert, + pertinent finding (demented, pt with intermittent mumbling to self, does not respond or follow commands) Skin: + pertinent finding (abrasions noted to back, several ecchymosis to bilateral forearms. see extremities) Diagnostics - H&P Diagnostics Laboratory Results Results Past 24 Hours Test 09/18/17 12:34 09/18/17 12:41 09/18/17 12:55 Range/Units White Blood Count 9.36 4.8-10.8 K/uL Red Blood Count 3.20 4.2-5.4 M/uL Hemoglobin 9.8 12.0-16.0 g/dL Hematocrit 31.1 37-47 % Mean Corpuscular Volume 97.2 80-100 fL Mean Corpuscular Hemoglobin 30.6 25-34 pg Mean Corpuscular Hemoglobin Concent 31.5 32-36 g/dl Platelet Count 238 130-400 K/uL Mean Platelet Volume 9.5 7.4-10.4 fL Neutrophils (%) (Auto) 76.1 % Lymphocytes (%) (Auto) 14.6 % Monocytes (%) (Auto) 7.3 % Eosinophils (%) (Auto) 1.5 % Basophils (%) (Auto) 0.1 % Neutrophils # (Auto) 7.12 1.4-6.5 K/uL Lymphocytes # (Auto) 1.37 1.2-3.4 K/uL Monocytes # (Auto) 0.68 0.11-0.59 K/uL Eosinophils # (Auto) 0.14 0-0.5 K/uL Basophils # (Auto) 0.01 0-0.2 K/uL RDW Standard Deviation 45.9 36.4-46.3 fL RDW Coefficient of Variation 12.9 11.5-14.5 % Immature Granulocyte % (Auto) 0.4 % Immature Granulocyte # (Auto) 0.04 0.00-0.02 K/uL Prothrombin Time 11.1 9.0-12.0 SECONDS Prothromb Time International Ratio 1.0 0.9-1.1 Activated Partial Thromboplast Time 26.2 21.0-31.0 SECONDS Partial Thromboplastin Ratio 1.0 Sodium Level 138 136-145 mmol/L Potassium Level 4.3 3.5-5.1 mmol/L Chloride Level 103 98-107 mmol/L Carbon Dioxide Level 30 21-32 mmol/L Anion Gap 5.0 3-11 mmol/L Blood Urea Nitrogen 29 7-18 mg/dl Creatinine 1.00 0.60-1.20 mg/dl Est Creatinine Clear Calc Drug Dose 34.9 ml/min Estimated GFR () 61.2 Estimated GFR (Non- 52.8 BUN/Creatinine Ratio 29.5 10-20 Random Glucose 110 70-99 mg/dl Calcium Level 7.8 8.5-10.1 mg/dl Magnesium Level 2.0 1.8-2.4 mg/dl Total Bilirubin 0.5 0.2-1 mg/dl Direct Bilirubin 0.1 0-0.2 mg/dl Aspartate Amino Transf (AST/SGOT) 15 15-37 U/L Alanine Aminotransferase (ALT/SGPT) 12 12-78 U/L Alkaline Phosphatase 72 45-117 U/L Total Creatine Kinase 94 26-192 U/L Creatine Kinase MB 2.3 0.5-3.6 ng/ml Creatine Kinase MB Ratio 2.4 0-3.0 Troponin I < 0.015 0-0.045 ng/ml Total Protein 6.4 6.4-8.2 gm/dl Albumin 1.9 3.4-5.0 gm/dl Lipase 72 73-393 U/L Thyroid Stimulating Hormone (TSH) 1.510 0.300-4.500 uIu/ml Bedside Lactic Acid Venous 2.16 0.90-1.70 mmol/L Urine Color DK YELLOW Urine Appearance CLOUDY CLEAR Urine pH 5.0 4.5-7.5 Urine Specific [place] 1.023 1.000-1.030 Urine Protein 1+ NEG Urine Glucose (UA) NEG NEG Urine Ketones TRACE NEG Urine Occult Blood 3+ NEG Urine Nitrite NEG NEG Urine Bilirubin NEG NEG Urine Urobilinogen NEG NEG Urine Leukocyte Esterase SMALL NEG Urine WBC (Auto) 1-5 0-5 /hpf Urine RBC (Auto) 10-30 0-4 /hpf Urine Hyaline Casts (Auto) 1-5 0-5 /lpf Urine Epithelial Cells (Auto) >30 0-5 /lpf Urine Bacteria (Auto) NEG NEG Urine Crystals CALCIUM OXALATE NONE PRSENT Urine Pathogenic Casts 0 /lpf Microbiology Results 09/18/17 Blood Culture, Received Pending 09/18/17 Blood Culture, Received Pending 09/18/17 MRSA DNA Surveillance Screen, Received Pending 09/18/17 Urine Culture, Received Pending 09/18/17 Gram Stain, Received Pending 09/18/17 Wound Culture, Received Pending Diagnostic Radiology CXR: IMPRESSION: There are airspace opacities at the left lung base. This could represent atelectasis versus pneumonia/aspiration pneumonitis. Clinical correlation will be required. EKG EKG: artifact noted, NSR, rate 68, no ST elevations noted Impression - H&P Impression Assessment and Plan INFECTED ULCER L heel ulcer appears infected at this time. No leukocytosis, afebrile, no tachycardia or tachypnea. POC lactic acid: 2.1. Pt does not meet sepsis criteria at this time. Will continue to monitor. Pt also with ulcers to L elbow and R sacrum. -U/S bilateral LE to r/o DVT -obtain wound cultures from all ulceration sites -daptomycin and zosyn to cover possible MRSA and pseudomonas -ID consult -wound consult - appreciate wound nurse recommendations for wound care and type of mattress -frequent repositioning of pt -repeat cbc, prp in am DEMENTIA Pt reported to be at baseline per family -speech eval for swallowing. will hold on diet at this time until eval ATELECTASIS: CXR: impression: There are airspace opacities at the left lung base. This could represent atelectasis versus pneumonia/aspiration pneumonitis. At this time do not clinically suspect pneumonia and suspect atelectasis. Will continue to monitor. Do not suspect pt would be able to do incentive spirometry with her dementia HYPERLIPIDEMIA -add fasting lipids for am -hold lipitor at this time with pt being on daptomycin per pharmacist recommendations HX DM II Diet controlled at this time. glucose was 110 in ER. Hx A1c in 2016 was 6.1 -add A1c -continue to monitor DVT PROPHYLAXIS -heparin SQ Q12 hrs DISPOSITION -admit med/surg -DNR as per discussion with family -Follows with Dr Bond for routine care Pt was seen with Dr Tom. See addendum Level of Care Med/Surg Advanced Directives Existing Living Will: No Existing Power of Automotive Product Engineer: Yes Resuscitation Status DO NOT RESUSCITATE VTE Prophylaxis VTE Risk Assessment Done? Y/N: Yes Risk Level: High Given or contraindicated: Unfractionated heparin SQ Note ATTENDING ADDENDUM Record reviewed. Patient interviewed and examined. Care coordinated with Debora Urena PA-C. Please refer to her documentation for patient's history. Briefly, 82 YO female with history of ischemic heart disease, DM type 2, dementia. Brought to ED because of multiple decubitus ulcers not improving with home care. Patient is bedridden. EXAM: General- no acute distress VS- as noted Lungs- clear Heart- RRR, no gallop appreciated; pedal pulses 1/2 Abdomen- soft, nontender Extremities- swelling LLE; contractures upper and lower extremities Neuro- awake, confused Skin- multiple decubitus ulcers (left medial ankle 5 cm stage III; right greater trochanter 6 cm, unstagable; right sacral 3 cm, stage III; left sacral 6 cm, stage III; left elbow, stage III DATA: Lab studies as noted. ASSESSMENT AND PLAN: Multiple infected decubitus ulcers. Does not meet criteria for sepsis. Need to cover gram positive organisms including MRSA as well as gram negative organisms including Pseudomonas. IV antibiotic coverage with daptomycin and cefepime. Consult ID. Consult Wound Care. Avoid pressure / reposition. Please refer to ANABEL Dean's documentation for discussion of other issues. Serge Tom MD . Additional Copies To Ashlyn Bond D.O. Physical Exam (per Admitting): General Appearance: no apparent distress, + pertinent finding (frail appearing) Head: normocephalic, atraumatic Eyes: normal inspection, PERRL, sclerae normal, + pertinent finding (unable to test EOM's as pt does not follow commands) ENT: pharynx normal, + pertinent finding (mucous membranes moist) Neck: supple, no JVD, trachea midline Respiratory/Chest: lungs clear, normal breath sounds, no respiratory distress, no accessory muscle use, + pertinent finding (do not appreciate any wheezing/rhonchi/rales however difficult to fully assess as pt does not take deep breaths) Cardiovascular: regular rate, rhythm, no murmur, + pertinent finding ( peripheral pulses intact) Abdomen/GI: normal bowel sounds, soft, + pertinent finding (no noted wincing or guarding with palpation ) Extremities/Musculoskelatal: normal capillary refill, + pertinent finding ( no noted signs of distress with palpation. LLE with edema without erythema. Left medial heel with approx 6cm ulceration with eschar with surrounding erythema, no discharge, no red streaking. Left elbow with approx 3cm ulceration with eschar without significant surrounding erythema. Right sacrum with approx 6cm ulcer with eschar & 7cm ulcer with ecshar and adjoining 3mc ulcer with eschar. Pt holding bilateral arms tightly retracted to body.) Neurologic/Psych: alert, + pertinent finding (demented, pt with intermittent mumbling to self, does not respond or follow commands) Skin: + pertinent finding (abrasions noted to back, several ecchymosis to bilateral forearms. see extremities) Hospital Course MULTIPLE DECUBITUS SKIN ULCERS (present on admission) Please see the Photo-sacrum,right Hip,Right Heel and other areas Wound Care Nursing consulted. Cultures growing Staphylococcus aureus, Streptococcus species, and gram- negative bacilli. ID consulted-appreciate input . Reposition/turn every 2 hours. Optimize nutritional support. Continue daptomycin and cefepime and wound care as per nursing Will need 7 to 10 days of IV antibiotics-finished .Continue with Oral Doxycycline Debridement as per Wound care provider Continue current antibiotics for now : Day 10 now Will stop the antibiotic on Thursday and transfer back to Discussed in detailed with the SON and The -agreeable and aware that gradual deterioration is expected outcome Remains stable Discussed with Dr Danielle -will give Doxycycline 100 mg BID for 2 weeks Likely to be discharged tomorrow DVT'S BILAT LOWER EXTREMITIES (present on admission) Venous duplex demonstrated extensive DVTs both lower extremities. Started on IV heparin.,Continue IV heparin pending long-term plans-Coumadin started. Consider transition to warfarin if stools heme negative-not yet received Hb not dropped Therapeutic INR Decrease Coumadin to 2.5 mg from today INR-2.0 09/27 ANEMIA-Chronic Hgb 9.8 --> --> 7.8.. Suspect that anemia is chronic/multifactorial with falling H/H due to hemodilution Serum iron 20, transferrin sat 18%, ferritin 361, vitamin B12 453, folate 6.6. Start Fe supplementation. Transfusion not clearly indicated at this time, but consider maintaining higher H/H in light of multiple wounds. Hb 7.4 on 09/22 Will transfuse if Hb drops below 7.0 Will monitor Hb -8.1 on 09/25/17 Monitor CBC CORONARY ARTERY DISEASE Continue aspirin and metoprolol. No acute issue HYPERTENSION Continue metoprolol. Remains stable DM TYPE 2 Well-controlled on dietary management. Hemoglobin A1c 6.3. Fasting blood sugar this morning = 181. Lantus / NovoLog per protocol. Blood sugar is maintained VTE PROPHYLAXIS Receiving IV heparin for acute bilateral DVT's present on admission. DISPOSITION To be determined. Anticipate need for skilled care. Case Management consulted. Internal Medicine follow-up with Dr. Bond. Discussed with the Son and in detailed -happy with the care Discharge to today Total time spent on discharge = 40 minutes This includes examination of the patient, discharge planning, medication reconciliation, and communication with other providers. Discharge Instructions Date of Service Sep 29, 2017. Admission Reason for Admission: Decubitus Ulcer, Ulcer Of Left Heel, Wound Discharge Discharge Diagnosis / Problem: Multoiple Decubitus ulcers with infection, Bilateral DVTs,Chronic Anemia,DM Discharge Goals Goal(s): Prevent Disease Progression Activity Recommendations Activity Level: Assistance Required Therapies: Physical Therapy, Occupational Therapy . Additional Information Patient informed of condition: Yes (Does not understand) Advance Directives: No DNR: Yes Level of Care: Skilled Communicable Disease: No Prognosis: Stable Oxygen at (LPM): 2 liters /min via NC as needed Nance Catheter: Yes (Pl change as neede.Likely to stay for a while due to Decubetus) Instructions / Follow-Up Instructions / Follow-Up As Per Carrie Moore provider Current Hospital Diet Patient's current hospital diet: Regular Diet Discharge Diet Recommended Diet: Regular Diet (Needs assistance in feeding) Pending Studies Studies pending at discharge: no Laboratory Results Hemoglobin A1c Test 09/19/17 07:11 Range/Units Estimated Average Glucose 134 mg/dl Hemoglobin A1c 6.3 H 4.5-5.6 % Lipid Panel Test 09/19/17 07:11 Range/Units Triglycerides Level 74 0-150 mg/dl Cholesterol Level 114 0-200 mg/dl HDL Cholesterol 29 mg/dl Cholesterol/HDL Ratio 3.9 LDL Cholesterol, Calculated 70 mg/dl Medical Emergencies . Who to Call and When: Medical Emergencies: If at any time you feel your situation is an emergency, please call 911 immediately. . Non-Emergent Contact Non-Emergency issues call your: Primary Care Provider . Past History Medical & Surgical History: (1) Diabetes mellitus, type II (2) Decubitus ulcer (3) Wound infection (4) Ulcer of left heel (5) Coronary artery disease (6) Status post hysterectomy (7) Status post total knee replacement . "Provider Documentation" section prepared by Ko Torres. . Core Measure Problem Core Measures: VTE VTE Core Measures VTE Diagnosis: (1) DVT (deep venous thrombosis) Date of VTE Diagnosis: Sep 18, 2017 Time of VTE Diagnosis: 15:31 Reason no anticoag overlap I/P: Treatment provided - N/A Reason no anticoag overlap @DC: Treatment not indicated (Anemia.) <Electronically signed by Ko Torres M.D.> Signed: 09/29/17 1002 Additional Copies To Ashlyn Bond D.O.
[2017-09-29 11:18] LABS: BASO % 0.2 %; BASO ABS # 0.02 K/uL (0-0.2); HEMATOCRIT 27.6 % (37-47); IG% 1.3 %; LYMPH % 19.6 %; LYMPH ABS # 1.79 K/uL (1.2-3.4); MEAN CELL VOLUME 95.5 fL (80-100); MEAN CORPUSCULAR HEMOGLOBIN 29.8 pg (25-34); MEAN CORPUSCULAR HGB CONC 31.2 g/dl (32-36); MEAN PLATELET VOLUME 8.8 fL (7.4-10.4); MONO % 6.8 %; NEUT % 70.1 %; PLATELET COUNT 313 K/uL (130-400); RED BLOOD COUNT 2.89 M/uL (4.2-5.4); WHITE BLOOD COUNT 9.13 K/uL (4.8-10.8)
[2017-09-29 11:27] LABS: INR 1.8 (0.9-1.1); PARTIAL THROMBOPLASTIN RATIO 1.4; PROTHROMBIN TIME (PATIENT) 18.7 SECONDS (9.0-12.0)
[2017-09-29 11:36] LABS: CALCIUM 8.2 mg/dl (8.5-10.1); CREATININE 0.88 mg/dl (0.60-1.20); POTASSIUM 4.7 mmol/L (3.5-5.1)
[2017-09-29 11:41] LABS: ACANTHOCYTES 1+; COMPLETE YES
--- NOTE | 2017-09-29 12:18 | Infectious Disease Progress Nt ---
Progress Note Date of Service Sep 29, 2017. Subjective Pt evaluation today including: conversation w/ patient, physical exam, chart review, lab review, review of studies, conversation w/ showroom sales consultant, review of inpatient medication list Patient appears comfortable. Remains afebrile. No problems overnight. All Other Systems: Reviewed and Negative Medications Current Inpatient Medications Medications (Trade) Dose Ordered Sig/Matthew Route Start Time Stop Time Status Last Admin Dose Admin Acetaminophen (Tylenol Tab) 650 mg Q4H PRN PO 09/18/17 15:45 10/18/17 15:44 09/24/17 22:43 650 MG Ondansetron HCl (Zofran Inj) 4 mg Q6H PRN IV 09/18/17 15:45 10/18/17 15:44 Polyethylene (Miralax Powder Packet) 17 gm DAILY PRN PO 09/18/17 17:45 10/18/17 17:44 09/20/17 17:17 17 GM Aspirin (Ecotrin Tab) 81 mg DAILY PO 09/19/17 08:00 10/19/17 07:59 09/28/17 08:00 81 MG Metoprolol Succinate (Toprol Xl Tab) 25 mg DAILY PO 09/19/17 08:00 10/19/17 07:59 09/29/17 08:48 25 MG Timolol Maleate (Timoptic 0.25% Oph Soln) 1 drops DAILY OPB 09/19/17 08:00 10/19/17 07:59 09/29/17 08:47 1 DROPS Potassium Chloride/Dextrose/ Sod Cl 1,000 ml @ 50 mls/hr Q20H IV 09/19/17 20:15 10/19/17 20:14 09/28/17 14:07 50 MLS/HR Enteral Nutritional Formula (Boost Pudding) 1 cup TIDM PO 09/20/17 17:00 10/20/17 16:59 09/28/17 17:00 1 CUP Insulin Aspart (novoLOG ASPART) SLIDING SCALE G... ACHS SC 09/21/17 06:30 10/21/17 06:29 09/27/17 19:52 1 UNITS Glucose (Glucose 40% Gel) 15-30 GRAMS 15 GRAMS... UD PRN PO 09/20/17 23:30 10/20/17 23:29 Glucose (Glucose Chew Tab) 4-8 Tablets 4 Tabl... UD PRN PO 09/20/17 23:30 10/20/17 23:29 Dextrose (Dextrose 50% 50ML Syringe) 25-50ML OF 50% DW IV FOR... UD PRN IV 09/20/17 23:30 10/20/17 23:29 Glucagon (Glucagon Inj) 1 mg UD PRN SQ 09/20/17 23:30 10/20/17 23:29 Collagenase (Santyl Oint) 1 appln DAILY EXT 09/21/17 11:15 10/21/17 11:14 09/29/17 08:47 1 APPLN Ferrous Sulfate (Feosol Tab) 325 mg DAILY@1300 PO 09/22/17 13:00 10/22/17 12:59 09/28/17 12:46 325 MG Bisacodyl (Dulcolax Supp) 10 mg DAILY PRN MD 09/21/17 20:45 10/21/17 20:44 09/25/17 11:50 10 MG Docusate Sodium (coLACE SYRUP) 100 mg BID PO 09/22/17 08:45 10/22/17 08:44 09/28/17 21:23 100 MG Warfarin Sodium (Coumadin Tab) 2.5 mg DAILY@16 PO 09/26/17 16:00 10/23/17 15:59 09/28/17 19:10 2.5 MG Doxycycline Hyclate (Vibramycin Cap) 100 mg BID PO 09/28/17 20:00 10/08/17 19:59 09/29/17 08:48 100 MG Objective Vital Signs Date Time Temp Pulse Resp B/P (MAP) Pulse Ox O2 Delivery O2 Flow Rate FiO2 09/29/17 08:30 Room Air 09/29/17 08:08 36.2 64 24 106/63 (77) 100 Room Air 09/29/17 00:05 36.8 62 16 110/66 (81) 98 Room Air 09/29/17 00:05 97 Room Air 09/28/17 16:05 36.9 66 18 107/64 (78) 98 Room Air 09/28/17 16:00 97 Room Air Physical Exam General Appearance: WD/WN, no apparent distress Eyes: normal inspection, sclerae normal ENT: normal ENT inspection, pharynx normal Neck: supple, no adenopathy, trachea midline Respiratory/Chest: chest non-tender, lungs clear, normal breath sounds, no respiratory distress Cardiovascular: regular rate, rhythm, no gallop, no murmur Abdomen: normal bowel sounds, non tender, soft, no organomegaly Extremities: non-tender, no calf tenderness Neurologic/Psychiatric: alert, + disoriented Skin: normal color, no rash, + pertinent finding (Ulcerations slowly improving) Lymphatic: no adenopathy Laboratory Results Last 24 Hours Test 09/28/17 16:41 09/28/17 20:13 09/29/17 07:46 09/29/17 11:03 Bedside Glucose 126 mg/dl 115 mg/dl 121 mg/dl White Blood Count 9.13 K/uL Red Blood Count 2.89 M/uL Hemoglobin 8.6 g/dL Hematocrit 27.6 % Mean Corpuscular Volume 95.5 fL Mean Corpuscular Hemoglobin 29.8 pg Mean Corpuscular Hemoglobin Concent 31.2 g/dl Platelet Count 313 K/uL Mean Platelet Volume 8.8 fL Neutrophils (%) (Auto) 70.1 % Lymphocytes (%) (Auto) 19.6 % Monocytes (%) (Auto) 6.8 % Eosinophils (%) (Auto) 2.0 % Basophils (%) (Auto) 0.2 % Neutrophils # (Auto) 6.40 K/uL Lymphocytes # (Auto) 1.79 K/uL Monocytes # (Auto) 0.62 K/uL Eosinophils # (Auto) 0.18 K/uL Basophils # (Auto) 0.02 K/uL RDW Standard Deviation 46.6 fL RDW Coefficient of Variation 13.5 % Immature Granulocyte % (Auto) 1.3 % Immature Granulocyte # (Auto) 0.12 K/uL Acanthocytes 1+ Prothrombin Time 18.7 SECONDS Prothromb Time International Ratio 1.8 Activated Partial Thromboplast Time 35.6 SECONDS Partial Thromboplastin Ratio 1.4 Sodium Level 136 mmol/L Potassium Level 4.7 mmol/L Chloride Level 106 mmol/L Carbon Dioxide Level 25 mmol/L Anion Gap 5.0 mmol/L Blood Urea Nitrogen 11 mg/dl Creatinine 0.88 mg/dl Est Creatinine Clear Calc Drug Dose 39.7 ml/min Estimated GFR () 71.4 Estimated GFR (Non- 61.6 BUN/Creatinine Ratio 12.0 Random Glucose 112 mg/dl Calcium Level 8.2 mg/dl Test 09/29/17 11:25 Bedside Glucose 103 mg/dl Assessment and Plan infected left heel ulceration in patient with diabetes mellitus, with cultures most consistently growing Staph aureus, methicillin-resistant. I think the patient has received enough IV antibiotics, and would continue oral doxycycline to continue treatment for MRSA infected wounds to improve wound healing. Discussed with Dr. Torres.
[2017-09-29] MEDS: FERROUS SULFATE 325 MG TAB PO SCH (13:00)
[2017-09-29] MEDS: D5W AND 1/2NSS + 20MEQ KCL 1,000 ML IV SCH (13:00)
[2017-09-29 14:13] VITALS: BP 106/63; PULSE 64; TEMP 36.2; O2SAT 100
[2017-09-29] MEDS: WARFARIN SOD 2.5 MG TAB PO SCH (15:47)
== END 2017-09-29 16:51 | DRG 570 ==
LOC: EDBD 10:53 → C.EDA 10:57 → C.4E 15:35 → UNDOADMIN 15:35 → ENRESERV 15:43
PROVIDERS: ADMIT Hospitalist; ATTEND Internal Medicine
PROC: 0HDDXZZ Extraction of Right Lower Arm Skin, External Approach (ICD-10-PCS; principal; 2017-09-22)
PROC: 0HDMXZZ Extraction of Right Foot Skin, External Approach (ICD-10-PCS; principal; 2017-09-22)
PROC: 0JBL0ZZ Excision of Right Upper Leg Subcutaneous Tissue and Fascia, Open Approach (ICD-10-PCS; principal; 2017-09-22)
DX: L89.013 Pressure ulcer of right elbow, stage 3 (principal); R47.01 Aphasia; J98.11 Atelectasis; I82.4Z3 Acute embolism and thrombosis of unspecified deep veins of distal lower extremity, bilateral; B95.62 Methicillin resistant Staphylococcus aureus infection as the cause of diseases classified elsewhere; L89.150 Pressure ulcer of sacral region, unstageable; L89.610 Pressure ulcer of right heel, unstageable; L89.210 Pressure ulcer of right hip, unstageable; I10 Essential (primary) hypertension; F03.90 Unspecified dementia, unspecified severity, without behavioral disturbance, psychotic disturbance, mood disturbance, and anxiety; I25.10 Atherosclerotic heart disease of native coronary artery without angina pectoris; E11.621 Type 2 diabetes mellitus with foot ulcer; E11.622 Type 2 diabetes mellitus with other skin ulcer; E78.5 Hyperlipidemia, unspecified; Z66 Do not resuscitate; Z79.82 Long term (current) use of aspirin; Z79.899 Other long term (current) drug therapy; Z87.891 Personal history of nicotine dependence